=== PATIENT | male | born 1990 | race Caucasian/White ===

== ENCOUNTER 2023-04-25 20:40 | Emergency (ER) | payer BC, SELFPAY ==
--- NOTE | 2023-04-25 20:50 | ECG_ITS ---
APPROVED REPORT Exam: Resting ECG HR:75 bpm ECG Measurements Heart Rate 75 AXES AR 156 P 29 QRSd 113 QRS 13 QT 365 T 73 QTc 394 Conclusion SINUS RHYTHM WITH SINUS ARRHYTHMIA Isolated Q in III ABNORMAL ECG UNCONFIRMED REPORT Electronically signed by : Jorge Maldonado MD 04/26/2023 09:51:42
[2023-04-25 20:54] VITALS: BP 132/86; PULSE 78; RESP 18; TEMP 36.7; O2SAT 98; BMI 32.3
--- NOTE | 2023-04-25 21:00 | CT_ITS ---
PROCEDURE INFORMATION: Exam: CTA Head With Contrast, Arteriography Exam date and time: 04/25/2023 9:12 PM Age: 33 years old Clinical indication: Stroke-like symptoms; RT upper extremity and RT lower extremity weakness; Additional info: Jernigan/r weak TECHNIQUE: Imaging protocol: Computed tomographic angiography of the head with contrast. Exam focused on the arteries. 3D rendering (Not supervised by radiologist): MIP and/or 3D reconstructed images were created by the technologist. Radiation optimization: All CT scans at this facility use at least one of these dose optimization techniques: automated exposure control; mA and/or kV adjustment per patient size (includes targeted exams where dose is matched to clinical indication); or iterative reconstruction. Contrast material: ISOVUE; Contrast volume: 100 ml; Contrast route: INTRAVENOUS (IV); REPORTING DATA: Count of CT and Cardiac NM exams in prior 12 months: This patient has received 0 known CTs and 0 known cardiac nuclear medicine studies in the 12 months prior to the current study. COMPARISON: CT HEAD/BRAIN WO CON 04/25/2023 9:05 PM FINDINGS: ANTERIOR CIRCULATION: Right internal carotid artery: Intracranial segment is patent with no significant stenosis. No aneurysm. Right middle cerebral artery: No occlusion or significant stenosis. No aneurysm. Right anterior cerebral artery: No occlusion or significant stenosis. No aneurysm. Left internal carotid artery: Intracranial segment is patent with no significant stenosis. No aneurysm. Left middle cerebral artery: No occlusion or significant stenosis. No aneurysm. Left anterior cerebral artery: No occlusion or significant stenosis. No aneurysm. POSTERIOR CIRCULATION: Right vertebral artery: No occlusion or significant stenosis. No aneurysm. Left vertebral artery: No occlusion or significant stenosis. No aneurysm. Basilar artery: No occlusion or significant stenosis. No aneurysm. Right posterior cerebral artery: No occlusion or significant stenosis. No aneurysm. Left posterior cerebral artery: No occlusion or significant stenosis. No aneurysm. Brain: No definite mass, mass effect, or midline shift. Cerebral ventricles: No ventriculomegaly. Bones/joints: Unremarkable. No acute fracture. Soft tissues: Unremarkable. IMPRESSION: No large vessel stenosis or occlusion.
--- NOTE | 2023-04-25 21:00 | CT_ITS ---
PROCEDURE INFORMATION: Exam: CT Head Without Contrast Exam date and time: 04/25/2023 9:05 PM Age: 33 years old Clinical indication: Pain; Headache; Additional info: Jernigan/r weak TECHNIQUE: Imaging protocol: Computed tomography of the head without contrast. Radiation optimization: All CT scans at this facility use at least one of these dose optimization techniques: automated exposure control; mA and/or kV adjustment per patient size (includes targeted exams where dose is matched to clinical indication); or iterative reconstruction. Other technique: STROKE PROTOCOL was implemented. REPORTING DATA: Count of CT and Cardiac NM exams in prior 12 months: This patient has received 0 known CTs and 0 known cardiac nuclear medicine studies in the 12 months prior to the current study. COMPARISON: No relevant prior studies available. FINDINGS: Brain: No acute infarct. No hemorrhage. Unremarkable white matter for age. No mass effect. Cerebral ventricles: No ventriculomegaly. Paranasal sinuses: No significant inflammation. No fluid levels. Mastoid air cells: Visualized mastoid air cells are well aerated. Bones/joints: Unremarkable. No acute fracture. Soft tissues: Unremarkable. IMPRESSION: No acute intracranial abnormality. ASSESSMENT: ASPECTS ([facility] Stroke Program Early CT Score) is 10.
--- NOTE | 2023-04-25 21:00 | CT_ITS ---
PROCEDURE INFORMATION: Exam: CTA Neck With Contrast Exam date and time: 04/25/2023 9:12 PM Age: 33 years old Clinical indication: Stroke-like symptoms; RT upper extremity and RT lower extremity weakness; Additional info: Jernigan/r weak TECHNIQUE: Imaging protocol: Computed tomographic angiography of the neck with contrast. 3D rendering (Not supervised by radiologist): MIP and/or 3D reconstructed images were created by the technologist. Radiation optimization: All CT scans at this facility use at least one of these dose optimization techniques: automated exposure control; mA and/or kV adjustment per patient size (includes targeted exams where dose is matched to clinical indication); or iterative reconstruction. Contrast material: ISOVUE; Contrast volume: 100 ml; Contrast route: INTRAVENOUS (IV); REPORTING DATA: Count of CT and Cardiac NM exams in prior 12 months: This patient has received 0 known CTs and 0 known cardiac nuclear medicine studies in the 12 months prior to the current study. COMPARISON: CT HEAD/BRAIN WO CON 04/25/2023 9:05 PM FINDINGS: Right common carotid artery: No stenosis. No dissection or occlusion. Right internal carotid artery: No stenosis of the extracranial segment. No dissection or occlusion. Right external carotid artery: No occlusion or stenosis of the origin. Left common carotid artery: No stenosis. No dissection or occlusion. Left internal carotid artery: No stenosis of the extracranial segment. No dissection or occlusion. Left external carotid artery: No occlusion or stenosis of the origin. Right vertebral artery: No stenosis. No dissection or occlusion. Left vertebral artery: No stenosis. No dissection or occlusion. Soft tissues: Normal. No significant soft tissue swelling. Bones/joints: No acute fracture. IMPRESSION: No stenosis or occlusion. REFERENCES: NASCET CRITERIA. The degree of stenosis in the cervical segment of the internal carotid artery is based on NASCET criteria. Normal is no stenosis. Mild is less than 50% stenosis. Moderate is 50-69% stenosis. Severe is 70% to 99% stenosis. Total occlusion is no detectable patent lumen.
--- NOTE | 2023-04-25 21:01 | XR_ITS ---
PROCEDURE INFORMATION: Exam: XR Chest Exam date and time: 04/25/2023 9:31 PM Age: 33 years old Clinical indication: Sternal or substernal pain; Additional info: Cp TECHNIQUE: Imaging protocol: Radiologic exam of the chest. Views: 1 view. COMPARISON: CT ANGIO NECK 04/25/2023 9:12 PM FINDINGS: Lungs: Unremarkable. No consolidation. Pleural spaces: Unremarkable. No pleural effusion. No pneumothorax. Heart/Mediastinum: Unremarkable. No cardiomegaly. Bones/joints: Unremarkable. IMPRESSION: No acute findings.
--- NOTE | 2023-04-25 21:02 | HMH.EDGENADL ---
Discharge Plan Disposition Patient Disposition: Xfer Short-Term Hosp Prescriptions Prescriptions: No Action rosuvastatin [Crestor] 5 mg tablet 5 mg PO DAILY Qty: 30 2RF Referrals Follow up/Referrals: Provider,Referral, [Primary Care Provider] - See instructions Clinical Impressions Clinical Impression: Acute CVA (cerebrovascular accident) Discharge ED Provider: Aguilar Maldonado General Adult HPI General Chief complaint: Dizziness Stated complaint: blurry vision, headache Time Seen by Provider: 04/25/23 20:45 History of Present Illness HPI narrative: Patient is a 33-year-old male with no significant past medical history presents emergency department for evaluation of headache and right upper extremity weakness. Last known normal 5:15 PM patient developed severe maximum onset headache, bilateral blurry vision, right-sided weakness. Due to persistent symptoms he presents here for continued evaluation. Patient does not take blood thinners. Related Data Previous Rx's Medication Instructions Recorded rosuvastatin 5 mg tablet (Crestor) 5 mg PO DAILY #30 tabs 05/07/22 Allergies Allergy/AdvReac Type Severity Reaction Status Date / Time No Known Allergies Allergy Verified 04/23/22 11:32 [facility] Disclaimer: The information contained in this section may have been updated after the patient was seen, as this information can be updated by other users. Medical History (Updated 04/25/23 @ 21:54 by Aguilar Maldonado MD) Family history of ischemic heart disease Shoulder pain Family History Grandfather Cancer Diabetes Brother Diabetes Mother Hypertension Social History (Updated 04/23/22 @ 11:31 by Kareen Elizabeth) Smoking Status: Never smoker alcohol intake: never substance use type: denies use current occupational status: employed Travel in the last 8 weeks: Inside the [place] ROS Obtained: Yes Systems reviewed as appropriate & no additional complaints except as documented Physical Exam General General appearance: alert and in no apparent distress Head Head exam: atraumatic and normocephalic Eye Eye exam: Present PERRL and EOMI ENT ENT exam: Present mucous membranes moist Neck Neck exam: Present normal inspection Chest Chest inspection: Present normal inspection and symmetric chest wall rise Respiratory Respiratory exam: Present normal lung sounds bilaterally; Absent respiratory distress Cardiovascular Cardiovascular exam: Present regular rate and normal rhythm Abdominal Exam Abdominal exam: Present soft; Absent tenderness Extremities Exam Extremities exam: Present normal inspection Neurological Exam Neurological exam: Present alert, oriented X3 and motor sensory deficit (Right upper extremity drift to bed, right lower extremity drift to bed. Decreased sensation right arm and right leg.); Absent CN II-XII intact (Bilateral visual blurriness, able to see in all visual mcclellan.) Psychiatric Psychiatric exam: Present normal affect Skin Skin exam: Present warm and dry Medical Decision Making Yunier Inquiry Pt receiving controlled substance: No Vital Signs: 04/25/23 20:54 Temperature 98.0 F Temperature Source Oral Pulse Rate [Right] 78 Respiratory Rate 18 Blood Pressure [Right Arm] 132/86 Blood Pressure Mean [Right Arm] 101 Blood Pressure Source [Right Arm] Automatic Cuff Blood Pressure Position [Right Arm] Supine 02 Sat by Pulse Oximetry 98 Oxygen Delivery Method Room Air Lab Data Lab Results 04/25/23 20:53: WBC 7.3, RBC 5.45, Hgb 15.5, Hct 46.3, MCV 85.0, MCH 28.4, MCHC 33.4, RDW 13.5, Plt Count 208, MPV 10.1, Neut % (Auto) 58.3, Lymph % (Auto) 32.1, Mills % (Auto) 7.1, Eos % (Auto) 1.8, Baso % (Auto) 0.8, Neut # (Auto) 4.2, Lymph # (Auto) 2.3, Mills # (Auto) 0.5, Eos # (Auto) 0.1, Baso # (Auto) 0.1, PT 10.1, INR 0.93, APTT 25.6, Sodium 142, Potassium 3.6, Chloride 108 H, Carbon Dioxide
[2023-04-25 21:09] LABS: Hematocrit 46.3 % (42.0-52.0); Hemoglobin 15.5 g/dL (14.1-18.0); Mean Corpuscular Hemoglobin 28.4 pg (27.0-31.2); Red Blood Count 5.45 M/mm3 (4.60-6.20); White Blood Count 7.3 K/mm3 (4.8-10.8)
[2023-04-25 21:10] LABS: Basophils # 0.1 K/mm3 (0-0.2); Basophils % 0.8 % (0.1-2.0); Chloride 108 mmol/L (98-107); Eosinophils # 0.1 K/mm3 (0.0-0.4); Eosinophils % 1.8 % (0.1-12.0); Lymphocytes # 2.3 K/mm3 (0.7-4.5); Lymphocytes % 32.1 % (10-50); Mean Corpuscular HGB Conc 33.4 g/dL (31.8-35.4); Mean Platelet Volume 10.1 fl (7.4-10.4); Monocytes # 0.5 K/mm3 (0.1-1.0); Monocytes % 7.1 % (1.7-9.3); Neutrophils # 4.2 K/mm3 (1.8-7.8); Neutrophils % 58.3 % (37.0-80.0); Platelet Count 208 K/mm3 (142-424); Red Cell Distribution Width 13.5 % (11.5-17.5); Sodium 142 mmol/L (136-145)
--- NOTE | 2023-04-25 21:10 | PC.NURSE ---
PT IN CT
[2023-04-25 21:11] LABS: Potassium 3.6 mmoL/L (3.5-5.1)
[2023-04-25 21:13] LABS: Alanine Aminotransferase 43 U/L (12-78); Albumin Level 4.2 g/dl (3.5-5.0); Albumin/Globulin Ratio 1.5 (1.1-1.8); Alkaline Phosphatase 112 U/L (38-126); Anion Gap 14.6 mEq/L (5-15); Aspartate Amino Transferase 31 U/L (17-59); Bilirubin,Total 0.2 mg/dl (0.2-1.3); Blood Urea Nitrogen 18 mg/dl (9-20); Carbon Dioxide 23 mmol/L (22.0-30.0); Cholesterol 192 mg/dl (140-200); Creatinine Clearance Estimated 135 mL/min (50-200); Estimated Glomerular Filt Rate 76 ml/min (>60); GFR (African American) 92 ML/MIN (>60); Globulin 2.8 g/dL (1.3-3.2); Triglycerides 166 mg/dl (30-150); VLDL Cholesterol 33 mg/dL (0-40)
[2023-04-25 21:14] LABS: Calcium 9.2 mg/dl (8.4-10.2); Chol/HDL Ratio 6.6 (1-3.5); Glucose 136 mg/dl (74-100); HDL Cholesterol 29 mg/dl (40-60)
[2023-04-25 21:16] LABS: Activated Partial Thrombo Time 25.6 seconds (22.8-30.6); INR 0.93 (0.9-1.1); Prothrombin Time 10.1 seconds (10.1-12.5)
[2023-04-25 21:25] LABS: Direct LDL Cholesterol 116.69 mg/dL (100-129)
[2023-04-25 21:29] LABS: Troponin I < 0.01 ng/ml (0.00-0.034)
--- NOTE | 2023-04-25 21:36 | PC.NURSE ---
on the phone with [employer] [facility] [employer]
[2023-04-25 21:48] VITALS: BMI 33.2
--- NOTE | 2023-04-25 22:02 | PC.NURSE ---
Patient remains alert, oriented. VSS. RN monitoring continued.
--- NOTE | 2023-04-25 22:02 | PC.NURSE ---
consent obtained per patient and his who remains at bedside. Patient verbally states acknowledgement of risks.
--- NOTE | 2023-04-25 22:15 | PC.NURSE ---
[id number].vss. emv 15. No obvious distress observed. Denies dyspnea, angina, n/v/d, abd pain. No obv signs of bleeding. Nurse at bedside continuing to monitor.
--- NOTE | 2023-04-25 22:20 | PC.NURSE ---
Call made to [facility] for tansport to [facility]. Report called and given to JOHANNY Ruffin at [facility]. Patient will be going to 2B ICU bed 223.
[2023-04-25 22:25] VITALS: BP 129/84; PULSE 74; RESP 15; TEMP 36.5; O2SAT 95
--- NOTE | 2023-04-25 22:30 | PC.NURSE ---
RN monitoring continues at bedside. No new symptoms noted. VSS. emv 15. nih 6.
[2023-04-25 22:57] VITALS: BP 141/86; PULSE 67; RESP 22; TEMP 36.5; O2SAT 96
== END 2023-04-25 23:06 | disposition short-term general hospital (02) ==
PROVIDERS: Emergency Provider Emergency Medicine; PCP Family Medicine
DX: I63.9 Cerebral infarction, unspecified (principal)
CPT/HCPCS: 70450; 70496; 70498; 71045; 80053; 80061; 84484; 85025; 85610; 85730; 93005; 96374; 96375; 99291; J0131; J2997; Q9967

== ENCOUNTER 2024-07-27 07:27 | Day surgery (SDC) | payer OTHER, SELFPAY ==
--- NOTE | 2024-07-27 07:39 | P.HP_ITS ---
History of Present Illness *Admission Date: 07/27/24 *Reason for visit:: Intractable GERD/throat clearing *History of present illness: Mr. Zamudio is a 34-year-old gentleman who is here for diagnostic upper endoscopy secondary to worsening heartburn and reflux despite using famotidine twice daily and omeprazole. The examination is deemed medically necessary for EGD. The patient has been seen, interviewed and examined prior to the procedure by both myself and the anesthesia provider. [facility] Disclaimer: The information contained in this section may have been updated after the domenic ent was seen, as this information can be updated by other users. Medical History (Updated 07/27/24 @ 07:40 by Lex Stone II, MD) Acid reflux Shoulder pain Family history of ischemic heart disease Surgical History (Updated 07/24/24 @ 14:46 by Dinora Maria RN) No significant past surgical history Family History Grandfather Cancer Diabetes Brother Diabetes Mother Hypertension Social History Smoking Status: Never smoker alcohol intake: never substance use type: denies use current occupational status: employed Travel in the last 8 weeks: Inside the [place] Have you lived/traveled outside US in past 30 days?: No Contact w/someone who lives/traveled outside US past 30 days?: No Exposure to someone with infectious disease in past 14 days?: No Do you have a fever (greater than 100.4 F or 38 C)?: No Have you tested positive for COVID-19: No Exposed to someone with COVID-19 in past 14 days?: No Do you have a sore throat?: No Do you have a cough?: No Do you have any weakness?: No Do you have any diarrhea?: No Are you experiencing any unusual bleeding?: No Do you have any muscle aches/pain?: No Do you have any abdominal pain?: No Are you experiencing loss of taste or smell?: No Review of Systems Review of Systems Review of systems (narrative): Negative *Cardiovascular Comments: Negative *Gastrointestinal Comments: Negative *Genitourinary Comments: Negative *Musculoskeletal Comments: Negative *Neurologic Comments: Negative Meds Home Medications and Allergies Home Medications ?Medication ?Instructions ?Recorded ?Confirmed ?Type famotidine 20 mg tablet 20 mg PO BID GERD 90 days #180 tabs 02/24/24 07/24/24 Rx omeprazole 40 mg capsule,delayed 40 mg PO DAILY gerd #90 caps 03/12/24 07/24/24 Rx release apixaban 5 mg tablet (Eliquis) 5 mg PO BID 07/01/24 07/24/24 History atorvastatin 40 mg tablet 40 mg PO DAILY 07/01/24 07/24/24 History colestipol 1 gram tablet 1 g PO BID #60 tabs 07/01/24 07/24/24 Rx magnesium hydroxide 400 mg (170 mg 400 mg PO DAILY 07/01/24 07/24/24 History magnesium) chewable tablet New Prescriptions to Start Prescriptions: Allergies Allergy/AdvReac Type Severity Reaction Status Date / Time No Known Allergies Allergy Verified 07/24/24 14:46 Exam *Routine HEENT Exam Head: Present normocephalic Eye: Present EOMI and PERRL ENT: Present mucous membranes moist *Routine Neck Exam Neck: Present supple *Routine Respiratory Exam Respiratory: Present CTA bilaterally *Routine Cardiovascular Exam Cardiovascular: Present RRR *Routine Abdominal Exam Abdominal: Present soft and normoactive bowel sounds; Absent tenderness *Routine Rectal Exam Rectal:: deferred *Routine Genitalia Exam Genitalia:: deferred *Routine Extremities Exam Extremities: Absent cyanosis, clubbing or edema *Routine Skin Exam Skin: Present warm; Absent rash *Routine Neurological Exam Neurological: Present alert and oriented X3 Assessment and Plan *Assessment and plan (1) GERD (gastroesophageal reflux disease): Status: Acute Category: Medical Code(s): K21.9 - Gastro-esophageal reflux disease without esophagitis (2) Heartburn: Status: Acute Category: Medical Code(s): R12 - Heartburn (3) Throat clearing: Status: Acute Category: Medical Code(s): R09.89 - Other specified symptoms and signs involving the circulatory and respiratory systems Plan A/P: 1. Worsening GERD/heartburn with throat clearing is the preprocedural diagnosis. The patient will be anesthetized/sedated using MAC sedation. The patient has been seen and examined. Cardiac and lung assessment prior to the examination is stable. Proceed with planned diagnostic EGD
--- NOTE | 2024-07-27 07:40 | P.PCN_ITS ---
[facility] Procedure Note Date: 07/27/24 Time: 08:10 Procedure Note:: Upper Endoscopy Procedure Report: Esophagogastroduodenoscopy with cold biopsies Endoscopost: Lex Stone II, MD Referring Physician: Nestor Linda MD Date of Procedure: July 27, 2024 Equipment: Olympus GIF 190 standard upper endoscope Sedation: MAC sedation Indications: Mr. Zamudio is a 34-year-old gentleman who is here for diagnostic evaluation of his persistent heartburn, reflux and dyspepsia. He does report some severe heartburn with chest pain. He has this despite taking omeprazole daily and famotidine twice daily. He has moderate belching and some bloating. He does report some early satiety and occasional nausea. The patient reports no dysphagia but does have occasional globus sensation. The patient also has chronic diarrhea and probable IBS?D. He has had cholecystectomy 6 or 7 years ago and presumptive bile acid diarrhea. The patient does report some urgency. He had a DIANE but has not had prior upper endoscopy. Procedure: Prior to the procedure, a history and physical exam was performed, and patient's medications and allergies were reviewed. The risks, benefits and alternatives of the sedation and procedure were discussed with the patient. All questions were answered and informed consent was obtained. The patient was brought to the procedure room. Patient identification and proposed procedure were verified by the physician and the nurse. The patient was placed in a left lateral decubitus position and the scope was passed under direct vision. Throughout the procedure, the patient's blood pressure, pulse, and oxygen saturations were monitored continuously. The upper GI endoscopy was accomplished without difficulty. The patient tolerated the procedure well. Findings: The scope was passed directly into the upper esophagus and advanced to the third portion of the duodenum. The post bulbar duodenum and duodenal bulb were normal with normal mucosa and conniventes. There was no scalloping of the conniventes. The ampulla was normal in appearance. The scope was withdrawn through a normal duodenal bulb and pylorus into the stomach. The pylorus was patulous. There was some linear reactive chemical gastropathy of the antrum (bile reflux). The body and fundus of the stomach were normal. Upon retroflexion there was a small 1 to 2 cm hiatal hernia. There was some bile and retained liquid food in the stomach. Biopsies were taken from the antrum. The scope was then withdrawn into the esophagus. There was a serrated Z-line with 1 tongue of salmon-colored mucosa that was biopsied to rule out short segment Cunningham's esophagus. There was no evidence of reflux esophagitis. There were tertiary contractions and evidence of moderate esophageal dysmotility. There was a small proximal esophageal inlet patch. The remainder of the esophageal mucosa was normal. Impression: 1. Nonerosive GERD with moderate esophageal dysmotility, small 1 to 2 cm hiatal hernia and single tongue of salmon-colored mucosa (biopsied to rule out short segment Cunningham's) 2. Linear reactive gastropathy with bile reflux and mild gastric dysmotility Plan: I will follow-up the biopsies. I would consider adding tricyclic or his intermittent esophageal spasm and IBS diarrhea. I would also continue colestipol. He may benefit from low-dose promotility agent for his ongoing functional GERD. Additionally, I would recommend dietary measures and testing of enzymes.
[2024-07-27 07:52] VITALS: BP 135/81; PULSE 98; RESP 16; TEMP 36.2; O2SAT 99; BMI 33.7
[2024-07-27] MEDS: LACTATED RINGERS 1000ML 1,000 ML 25 ML IV (07:58)
[2024-07-27 08:05] VITALS: O2SAT 99
[2024-07-27 08:20] VITALS: BP 120/77; PULSE 75; RESP 17; TEMP 36.3; O2SAT 93
[2024-07-27 08:30] VITALS: BP 122/77; PULSE 71; RESP 17; O2SAT 96
[2024-07-27 08:40] VITALS: BP 122/75; PULSE 73; RESP 17; O2SAT 95
[2024-07-27 08:50] VITALS: BP 139/80; PULSE 71; RESP 18; O2SAT 98
--- NOTE | 2024-07-27 08:56 | EXP.ANES.CKL ---
[facility] Disclaimer: The information contained in this section may have been updated after the patient was seen, as this information can be updated by other users. Medical History History of transesophageal echocardiography (DIANE) Hx of arterial ischemic stroke Acid reflux Shoulder pain Family history of ischemic heart disease Surgical History Hx of cholecystectomy Family History Grandfather Cancer Diabetes Brother Diabetes Mother Hypertension Social History Smoking Status: Never smoker alcohol intake: never substance use type: denies use current occupational status: employed Travel in the last 8 weeks: Inside the [place] caffeine: No Have you lived/traveled outside US in past 30 days?: No Contact w/someone who lives/traveled outside [place] past 30 days?: No Exposure to someone with infectious disease in past 14 days?: No Do you have a fever (greater than 100.4 F or 38 C)?: No Have you tested positive for COVID-19: No Exposed to someone with COVID-19 in past 14 days?: No Do you have a sore throat?: No Do you have a cough?: No Do you have any weakness?: No Do you have any diarrhea?: No Are you experiencing any unusual bleeding?: No Do you have any muscle aches/pain?: No Do you have any abdominal pain?: No Are you experiencing loss of taste or smell?: No [facility] Anesthesia Checklist Patient Identification Patient Identification: Arm Band Structural Data Admitted From: Home Planned Operative Procedure/s: EGD Consent for Planned Operative Procedure(s) Verified: Yes Verified Documents: Surgical Consent, History and Physical and Cardiac Clearance NPO Status Verified Time NPO: 00:00 Additional verifications Anesthesia Reactions: No Airway Assessment Mallampati Score:: Class II C-Spine Mobility Assessed: Yes TMJ Mobility Assessed: Yes Dentition: Good Dentition Neurological Assessment Level of Consciousness: Awake, Alert and Appropriate Anesthesia Plan Anesthesia Risk discussed: Yes Anesthesia Plan: Verified ASA Class: III Anesthesia Type: MAC
== END 2024-07-27 08:50 | disposition home or self-care (01) ==
PROVIDERS: PCP Internal Medicine; Visit Provider Internal Medicine Gastroenterology
PROC: 0DJ08ZZ Inspection of Upper Intestinal Tract, Via Natural or Artificial Opening Endoscopic (ICD-10-PCS; CPT 43239; principal; 2024-07-27 08:30)
DX: K21.9 Gastro-esophageal reflux disease without esophagitis (principal); R09.89 Other specified symptoms and signs involving the circulatory and respiratory systems; K58.0 Irritable bowel syndrome with diarrhea; K22.4 Dyskinesia of esophagus; K30 Functional dyspepsia; R68.81 Early satiety; K44.9 Diaphragmatic hernia without obstruction or gangrene; K31.9 Disease of stomach and duodenum, unspecified; K31.84 Gastroparesis
CPT/HCPCS: 43239; J7120

== ENCOUNTER 2025-06-02 07:55 | Day surgery (SDC) | payer OTHER, SELFPAY ==
--- NOTE | 2025-05-27 16:10 | EXP.HP ---
History of Present Illness *Admission Date: 06/02/25 *History of present illness: Mr. Zamudio is a 35-year-old gentleman who is here for diagnostic colonoscopy. The patient has had postprandial bowel urgency and diarrhea and had cholecystectomy 6 to 7 years ago. He does have urgent bowel movements 3-7 times daily. He has never had a colonoscopy. The examination is deemed medically necessary for diagnostic colonoscopy. The patient has been seen, interviewed and examined prior to the procedure by both myself and the anesthesia provider. [facility] Disclaimer: The information contained in this section may have been updated after the patient was seen, as this information can be updated by other users. Medical History HLD (hyperlipidemia) Abnormal electrocardiogram [ECG] [EKG] History of transesophageal echocardiography (DIANE) Hx of arterial ischemic stroke Acid reflux Shoulder pain Family history of ischemic heart disease Surgical History Hx of cholecystectomy Family History Grandfather Cancer Diabetes Brother Diabetes Mother Hypertension Social History Smoking Status: Never smoker alcohol intake: never substance use type: denies use current occupational status: employed Travel in the last 8 weeks?: Inside the [place] caffeine: No Have you lived/traveled outside US in past 30 days?: No Contact w/someone who lives/traveled outside US past 30 days?: No Exposure to someone with infectious disease in past 14 days?: No Do you have a fever (greater than 100.4 F or 38 C)?: No Have you tested positive for COVID-19?: No Exposed to someone with COVID-19 in past 14 days?: No Do you have a sore throat?: No Do you have a cough?: No Do you have any weakness?: No Do you have any diarrhea?: No Are you experiencing any unusual bleeding?: No Do you have any muscle aches/pain?: No Do you have any abdominal pain?: No Are you experiencing loss of taste or smell?: No Review of Systems Review of Systems Review of systems (narrative): Negative *Cardiovascular Comments: Negative *Gastrointestinal Comments: Negative *Genitourinary Comments: Negative *Musculoskeletal Comments: Negative *Neurologic Comments: Negative Meds Home Medications and Allergies Home Medications ?Medication ?Instructions ?Recorded ?Confirmed ?Type apixaban 5 mg tablet (Eliquis) 5 mg PO BID 07/01/24 06/02/25 History magnesium hydroxide 400 mg (170 mg 400 mg PO DAILY 07/01/24 06/02/25 History magnesium) chewable tablet amitriptyline 10 mg tablet 10 mg PO BID #60 tabs 07/27/24 06/02/25 Rx metoclopramide HCl 5 mg tablet 5 mg PO ACHS #120 tabs 07/27/24 06/02/25 Rx atorvastatin 40 mg tablet 40 mg PO QHS 09/28/24 06/02/25 History colestipol 1 gram tablet 2 g (2 x 1 gram) PO BID #120 tabs 09/28/24 06/02/25 Rx omeprazole 40 mg capsule,delayed 40 mg PO DAILY gerd #90 caps 09/28/24 06/02/25 Rx release sodium,potassium,mag sulfates 17.5 See Rx Instructions PO .COMPLEX 05/20/25 06/02/25 Rx gram-3.13 gram-1.6 gram oral soln #354 mL (Suprep Bowel Prep Kit) famotidine 20 mg tablet 40 mg PO DAILY 05/31/25 06/02/25 History lisinopril 5 mg tablet 2.5 mg PO DAILY 05/31/25 06/02/25 History topiramate 25 mg tablet 50 mg PO DAILY 05/31/25 06/02/25 History topiramate 50 mg tablet 50 mg PO HS 05/31/25 06/02/25 History ubrogepant 100 mg tablet (Ubrelvy) 100 mg PO NEEDED PRN headaches 05/31/25 06/02/25 History New Prescriptions to Start Prescriptions: Allergies Allergy/AdvReac Type Severity Reaction Status Date / Time No Known Allergies Allergy Verified 05/31/25 10:59 Exam *Routine HEENT Exam Head: Present normocephalic Eye: Present EOMI and PERRL ENT: Present mucous membranes moist *Routine Neck Exam Neck: Present supple *Routine Respiratory Exam Respiratory: Present CTA bilaterally *Routine Cardiovascular Exam Cardiovascular: Present RRR *Routine Abdominal Exam Abdominal: Present soft and normoactive bowel sounds; Absent tenderness *Routine Rectal Exam Rectal:: deferred *Routine Genitalia Exam Genitalia:: deferred *Routine Extremities Exam Extremities: Absent cyanosis, clubbing or edema *Routine Skin Exam Skin: Present warm; Absent rash *Routine Neurological Exam Neurological: Present alert and oriented X3 Assessment and Plan *Assessment and plan (1) Chronic diarrhea: Status: Acute Category: Medical Code(s): K52.9 - Noninfective gastroenteritis and colitis, unspecified (2) Fecal urgency: Status: Acute Category: Medical Code(s): R15.2 - Fecal urgency (3) Bile salt-induced diarrhea: Status: Acute Category: Medical Code(s): K90.89 - Other intestinal malabsorption Plan A/P: 1. Chronic diarrhea with urgency is the preprocedural diagnosis. The patient will be anesthetized/sedated using MAC sedation. The patient has been seen and examined. Cardiac and lung assessment prior to the examination is stable. Proceed with planned diagnostic colonoscopy.
[2025-06-02] VITALS (7 sets, daily range): BP systolic 121–149; BP diastolic 54–93; PULSE 77–95; RESP 16–18; TEMP 36.1–36.4; O2SAT 95–100; BMI 33.0
--- NOTE | 2025-06-02 06:29 | P.PCN_ITS ---
[facility] Procedure Note Date: 06/02/25 Time: 10: Procedure Note:: Colonoscopy Procedure Report: Colonoscopy with cold biopsies Endoscopist: Lex Stone II, MD Referring physician: Nestor Linda MD Date of Procedure: June 02, 2025 Equipment: Olympus [id number] adult colonoscope Sedation: MAC sedation Indication: Mr. Zamudio is a 35-year-old gentleman who is here for diagnostic colonoscopy. The patient has had postprandial bowel urgency and diarrhea and had cholecystectomy 6 to 7 years ago. He does have urgent bowel movements 3-7 times daily. The patient does state that this is watery and unformed bowel movements. He does have a lot of gassiness and some bloating. He also gets some generalized abdominal discomfort. He reports no rectal bleeding, mucus with his stools or weight loss. He reports no family history of colitis, Crohn's disease or colon cancer. He has never had a colonoscopy. The examination is deemed medically necessary for diagnostic colonoscopy. Procedure: Prior to the procedure, a history and physical exam was performed, and patient's medications and allergies were reviewed. The risks, benefits and alternatives of the sedation and procedure were discussed with the patient. All questions were answered and informed consent was obtained. The patient was brought to the procedure room. Patient identification and proposed procedure were verified by the physician and the nurse. The patient was placed in a left lateral decubitus position and the scope was passed under direct vision. Throughout the procedure, the patient's blood pressure, pulse, and oxygen saturations were monitored continuously. The colonoscopy was accomplished without difficulty. The patient tolerated the procedure well. Findings: On digital rectal examination there was normal rectal tone. There were no external hemorrhoids. The colonoscope was introduced through the anal canal to the rectum and advanced to the cecum. The ileocecal valve and appendiceal orifice were identified. The scope was advanced a short distance into the ileum which appeared grossly normal. The scope was then withdrawn into the colon. The cecum, ascending, transverse, descending, sigmoid and rectum were grossly normal. There was normal vascular pattern throughout and there were no mucosal abnormalities identified. Random cold biopsies were taken from both the right and the left colon to rule out microscopic colitis. Upon retroflexion within the rectum there were grade 1-2 internal hemorrhoids. The preparation was excellent throughout with Stamping Ground Preparation Score of 9. The cecal time was 12 minutes. Impression: 1. Normal colonoscopy with intubation of the terminal ileum 2. Grade 1-2 internal hemorrhoids Plan: I will follow-up the biopsies to rule out microscopic colitis. 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 Because of his prior cholecystectomy, I would recommend alosetron and may still consider Viberzi. I will await biopsies before deciding upon best treatment option.
[2025-06-02] MEDS: LACTATED RINGERS 1000ML 1,000 ML 50 ML IV (09:17)
--- NOTE | 2025-06-02 09:55 | EXP.ANES.CKL ---
[facility] Disclaimer: The information contained in this section may have been updated after the patient was seen, as this information can be updated by other users. Medical History HLD (hyperlipidemia) Abnormal electrocardiogram [ECG] [EKG] History of transesophageal echocardiography (DIANE) Hx of arterial ischemic stroke Acid reflux Shoulder pain Family history of ischemic heart disease Surgical History Hx of cholecystectomy Family History Grandfather Cancer Diabetes Brother Diabetes Mother Hypertension Social History Smoking Status: Never smoker alcohol intake: never substance use type: denies use current occupational status: employed Travel in the last 8 weeks?: Inside the [place] caffeine: No Have you lived/traveled outside US in past 30 days?: No Contact w/someone who lives/traveled outside US past 30 days?: No Exposure to someone with infectious disease in past 14 days?: No Do you have a fever (greater than 100.4 F or 38 C)?: No Have you tested positive for COVID-19?: No Exposed to someone with COVID-19 in past 14 days?: No Do you have a sore throat?: No Do you have a cough?: No Do you have any weakness?: No Do you have any diarrhea?: No Are you experiencing any unusual bleeding?: No Do you have any muscle aches/pain?: No Do you have any abdominal pain?: No Are you experiencing loss of taste or smell?: No [facility] Anesthesia Checklist Patient Identification Patient Identification: Arm Band Structural Data Admitted From: Home Planned Operative Procedure/s: Colonoscopy Consent for Planned Operative Procedure(s) Verified: Yes Verified Documents: Surgical Consent and History and Physical NPO Status Verified Time NPO: 06:00 (finished prep) Additional verifications Anesthesia Reactions: No Airway Assessment Mallampati Score:: Class II C-Spine Mobility Assessed: Yes TMJ Mobility Assessed: Yes Dentition: Good Dentition Neurological Assessment Level of Consciousness: Awake, Alert and Appropriate Anesthesia Plan Anesthesia Risk discussed: Yes Anesthesia Plan: Verified ASA Class: II Anesthesia Type: MAC
== END 2025-06-02 11:50 | disposition home or self-care (01) ==
PROVIDERS: PCP Internal Medicine; Visit Provider Internal Medicine Gastroenterology
PROC: 0DJD8ZZ Inspection of Lower Intestinal Tract, Via Natural or Artificial Opening Endoscopic (ICD-10-PCS; CPT 45378; principal; 2025-06-02 10:00)
DX: K64.0 First degree hemorrhoids (principal); K64.1 Second degree hemorrhoids; K52.9 Noninfective gastroenteritis and colitis, unspecified; K90.89 Other intestinal malabsorption; E78.5 Hyperlipidemia, unspecified; Z90.49 Acquired absence of other specified parts of digestive tract; Z79.01 Long term (current) use of anticoagulants
CPT/HCPCS: 45380; J2003; J2704; J7120

== ENCOUNTER 2025-06-16 07:47 | Outpatient (CLI) | payer OTHER, SELFPAY ==
--- OUTSIDE RECORDS SUMMARY | 2002-09-01 | XMS_ITS | Encounter Summary ---
Author Organization [facility] Address [address] [place] [id number] Care Team Providers Care Store Lead Name Role Phone Unavailable Primary Care Provider Unavailabl e Encounter Details Date Type Department Care Team (Late st Contact Info) Description 09/01/2002 Hospital Encounter [facility] Division of Cardiology [address] [place] [id number] Social History Tobacco Use Types Packs/Day Years Used Date Smoking Tobacco: Never Assessed Sex and Gender Information Value Date Recorded Sex Assigned at Not on file Legal Sex Male 5:14 AM EST Gender Identity Not on file Sexual Orientation Not on file documented as of this encounter Plan of Treatment Not on file documented as of this encounter Visit Diagnoses Not on filedocumented in this encounter
--- OUTSIDE RECORDS SUMMARY | 2025-05-03 12:30 | XMS_ITS | Encounter Summary ---
Author Organization [facility] Address [address] [place] [address] Care Team Providers Care Chemistry Laboratory Technician Name Role Phone Nestor Linda MD Primary Care Provider Reason for Visit * Reason Comments Follow-up Encounter Details Date Type Department Care Team (Late st Contact Info) Description 05/03/2025 1:30 PM EDT Office Visit [facility] [address] [place] [address] Jillian Fam APRN [address] [place], [place] [address] [place] [address] History of stroke (Primary Dx); Hyperlipidemia, unspecified hyperlipidemia type; Chronic migraine with aura without status migrainosus, not intractable Social History Tobacco Use Types Packs/Day Years Used Date Smoking Tobacco: Never Passive Smoke Exposure: Never Smokeless Tobacco: Never Tobacco Cessation:Counseling Given: No Alcohol Use Standard Drinks/Week Comments Not Currently 1 (1 standard drink = 0.6 oz pur e alcohol) AUDIT-C Answer Date Recorded Q1: How often do you have a drink containing alc ohol? 2-4 times a month 04/26/2023 Q2: How many drinks containi ng alcohol do you have on a typical day when you are drinking? 3 or 4 04/26/2023 Q3: How often do you have si x or more drinks on one occasion? Never 04/26/2023 PHQ-2 Answer Date Recorded Retired PHQ-9: Brief Depression Severity Measure Score 0 07/18/2023 Abuse Screen Answer Date Recorded Feels Unsafe at Home or Work/School no 10/20/2024 Feels Threatened by Someone no 10/03 Does Anyone Try to Keep You From Having Contact with Others or Doing Things Outside Your Home? no 10/20/2024 Physical Signs of Abuse Present no 10/20/2024 Housing Stability Answer Date Recorded Current Living Arrangements home 04/06 Potentially Unsafe Housing Conditions unable to assess 04/26/2023 Disabilities Answer Date Recorded Difficulty Concentrating, Remembering or Making Decisions no 04/26/2023 Difficulty Managing Errands Independently no 04/26/2023 Education Answer Date Recorded Help with school or training? Not on file Preferred Language Finnish 04/26/2023 PHQ-2 Answer Date Recorded Patient Health Questionnaire-2 Score 0 05/03/2025 Sex and Gender Information Value Date Recorded Sex Assigned at Male 10/30/2024 8:52 AM EDT Legal Sex Male 9:57 PM EDT Gender Identity Not on file Sexual Orientation Straight 10/30/2024 8: 52 AM EDT documented as of this encounter Last Filed Vital Signs Vital Sign Reading Time Taken Comments Blood Pressure 118/76 05/03/2025 1:16 PM EDT Pulse 89 05/03/2025 1:16 PM EDT Temperature 36.8 C (98.2 F) 05/03/2025 1:16 PM EDT Respiratory Rate - - Oxygen Saturation 98% 05/03/2025 1:16 PM EDT Inhaled Oxygen Concentration - - Weight 103 kg (226 lb 9.6 oz) 05/03/2025 1:16 PM EDT Height 177.8 cm (5' 10 ) 05/03/2025 1:16 PM EDT Body Mass Index 32.51 05/03/2025 1:16 PM EDT documented in this encounter Functional Status documented as of this encounter Progress Notes * Jillian Fam APRN - 05/03/2025 1:30 PM EDT Follow Up Office Visit Encounter Date: 05/03/2025 Patient Name: Gordon Zamudio : 1990 PCP: Nestor Linda MD Chief Complaint: History of stroke aborted by TNK. Chronic migraine. History of Present Illness: Gordon Zamudio is a 35 y.o. male who is here today to establish care. Patient has known medical history of hypertension and hyperlipidemia. [facility] with headache, bilateral eye blurred vision/squiggly lines, right-sided weakness and paresthesias. Outside hospital ER physician reported CT head and CTA were negative. Initial NIH 11. Patient was deemed a candidate for IV thrombolytic therapy and agreed to receive IV tPA. Patient self-reported he had had atrial fibrillation on his Apple Watch. On his presentation tot ED he was noted to be in sinus rhythm on EKG. MRI of the brain did not show any evidence of acute ischemic infarct. Per record review Dr. Haywood favored an ocular migraine over a vascular event. He was initially discharged on ASA 81 mg and Lipitor 80 mg. His hypercoagulable panel was negative. Patient's symptoms completely resolved. This event was likely an ocular migraine rather than a vascular event. Due to patient having a mildly positive saline test during his TTE and having multipleheads in right and left MCA territories on his TCD patient was referred to cardiology. He was recommended to continue taking mag oxide 400 mg nightly for headache prevention. Since his discharge from the hospital patient has been seen by cardiology. Patient completed a DIANE which showed a normal ejection fraction and saline test results were negative. He initially wore a Holter monitor which was negative. He will pursue a loop recorder. Per patient cardiology started patient on Eliquis 5 mg twice daily and DC'd ASA 81 mg. I am in agreement with this plan. Patient has not had any issues or concerns since his discharge from the hospital. No new or worsening neurologic symptoms. I do feel that loop recorder placement would be in the patient's best interest. Clinic visit 10/31/2023: Patient presents today accompanied by his and his friend. He denies any new or worsening strokelike symptoms. He has had no new episodes. He has been taking his Eliquis 5mg twice daily along with his cholesterol medication with no issues or side effects. He followed upwith cardiology today and they report they have no further concerns and feel he needs no further workup. They will see him back in a year and we will plan to do the same. Clinic visit 11/05/2024: Since her last visit patient has returned to the ER on 10/20/2024 for dizziness with worsening right sided weakness and numbness. He continues to take Eliquis for presumed atrial fibrillation. This is never been confirmed formally but was identified on his Apple Watch. He is faithful with his medications per his report. Although he was seen in April 2023 for possible stroke and received TNK it was speculated at that time that the patient was experiencing an ocular migraine. During his most recent reoccurrence in October 2024 patient was experiencing a 6/10 right frontal headache. After receiving a migraine cocktail again his symptoms resolved. The patient was evaluated by the inpatient stroke team CT of the head was stable with no evidence of hemorrhage or obvious stroke. CTA of the head and neck was negative for flow-limiting stenosis or large vessel occlusion..Ultimately an MRI of the brain without contrast was negative for any acute stroke but however did show multiple white matter changes present on FLAIR which could be related to demyelinating disease versus chronic white matter disease. A repeat MRI with contrast was recommended but the patient was unable to lay still to accomplish this on an inpatient basis. Plans were made for the patient to get this done on an outpatient basis. Based on the results of this MRI I decision would be made on whether to send the patient for a lumbar puncture and workup with Dr. Diehl for possible demyelinating disease versus a referral to Dr. Lugo for ocular/atypical migraine management. On my review of hisoutpatient MRI with and without contrast it seems that the presentation is not as usual for multiple sclerosis or demyelination. There was no abnormal enhancement noted. Dr. Farhan Ratliff again reported nonspecific white matter changes without evidence of abnormal enhancement. It is in my opinion that the patient should be sent to Dr. Rose for his specialty treatment and recommendations of migraine syndrome. I would also like to get his opinion from a general neurology standpoint what these white matter changes represent. Ultimately we can always send the patient for formal demyelinating disease workup if he feels this is necessary. In the interim while the patient is waiting for an appointment in the general neurology clinic I will initiate Topamax 25 mg at nighttime to help prevent future migraine headaches. The patient will call our office and give us feedback if this is not helpful or causes him to have any side effects. Clinic visit 05/03/2025: Patient is seen in clinic today for routine follow-up accompanied by his . He has been following our clinic for several years. He has not had any new stroke events since 2022. Patient has been referred to the general neurology clinic for Dr. Rose to manage his ongoing migraines. He has been maintained on Eliquis 5 mg twice daily as during his stroke event was noted to be in A-fib on a home monitor. Cardiology initiated this medication and we will continue as such fornow. Dr. Rose has recommended that we follow through with a loop recorder implantation which has been discussed multiple times in the past. I am in agreement with this plan if the patient goes a recommended amount of time by cardiology with no evidence of A-fib it is reasonable to consider transitioning him to aspirin monotherapy. Subjective I have reviewed and the following portions of the patient's history were updated as appropriate: past family history, past medical history, past social history, past surgical history and problem list. Medications: Current Outpatient Medications: amitriptyline (ELAVIL) 10 MG tablet, Take 1 tablet by mouth Every 12 (Twelve) Hours., Disp: , Rfl: apixaban (Eliquis) 5 MG tablet tablet, Take 1 tablet by mouth 2 (Two) Times a Day., Disp: 180 tablet, Rfl: 3 atorvastatin (LIPITOR) 40 MG tablet, Take 1 tablet by mouth Every Night., Disp: 90 tablet, Rfl: 3 colestipol (COLESTID) 1 g tablet, Take 1 tablet by mouth Every 12 (Twelve) Hours., Disp: , Rfl: famotidine (PEPCID) 20 MG tablet, Take 1 tablet by mouth At Night As Needed for Indigestion or Heartburn. (Patient taking differently: Take 1 tablet by mouth 2 (Two) Times a Day.), Disp: , Rfl: lisinopril (PRINIVIL,ZESTRIL) 5 MG tablet, Take 0.5 tablets by mouth Daily., Disp: 45 tablet, Rfl: 3 magnesium oxide (MAG-OX) 400 tablet tablet, Take 1 tablet by mouth Daily., Disp: 60 tablet, Rfl: 2 metoclopramide (REGLAN) 5 MG tablet, Take 1 tablet by mouth 4 (Four) Times a Day., Disp: , Rfl: omeprazole (priLOSEC) 40 MG capsule, Take 1 capsule by mouth Daily., Disp: , Rfl: rimegepant sulfate ODT (Nurtec) 75 MG disintegrating tablet, Place 1 tablet under the tongue Daily As Needed (For migraine. Max 75 mg per 24 hours.)., Disp: 8 tablet, Rfl: 11 topiramate (Topamax) 50 MG tablet, Take 1 tablet by mouth Every Night for 90 days., Disp: 90 tablet, Rfl: 1 Allergies: No Known Allergies Objective Physical Exam: Vital Signs: Vitals: 05/03/25 1316 BP: 118/76 Pulse: 89 Temp: 98.2 ??F (36.8 ??C) SpO2: 98% Weight: 103 kg (226 lb 9.6 oz) Height: 177.8 cm (70 ) Body mass index is 32.51 kg/m??. Physical Exam Vitals and nursing note reviewed. Constitutional: General: He is not in acute distress. Appearance: Normal appearance. He is obese. He is not ill-appearing. Comments: 35-year-old male HENT: Head: Normocephalic and atraumatic. Nose: Nose normal. Mouth/Throat: Mouth: Mucous membranes are moist. Eyes: Extraocular Movements: Extraocular movements intact. Pupils: Pupils are equal, round, and reactive to light. Cardiovascular: Rate and Rhythm: Normal rate and regular rhythm. Pulses: Normal pulses. Pulmonary: Effort: Pulmonary effort is normal. No respiratory distress. Skin: General: Skin is warm and dry. Neurological: General: No focal deficit present. Mental Status: He is alert and oriented to person, place, and time. Mental status is at baseline. Cranial Nerves: No cranial nerve deficit. Sensory: No sensory deficit. Motor: No weakness. Coordination: Coordination normal. Gait: Gait normal. Psychiatric: Mood and Affect: Mood normal. Behavior: Behavior normal. Modified Tryon Score: 0 0 No Symptoms 1 No significant disability. Able to carry out all usual activities, despite some symptoms. 2 Slight disability. Able to look after own affairs without assistance, but unable to carry out allprevious activities. 3 Moderate disability. Requires some help, but able to walk unassisted. 4 Moderately severe disability. Unable to attend to own bodily needs without assistance, and unableto walk unassisted. 5 Severe disability. Requires constant nursing care and attention, bedridden, incontinent. 6 PHQ-9 Depression Screening Little interest or pleasure in doing things? Not at all Feeling down, depressed, or hopeless? Not at all PHQ-2 Total Score 0 Trouble falling or staying asleep, or sleeping too much? Feeling tired or having little energy? Poor appetite or overeating? Feeling bad about yourself - or that you are a failure or have let yourself or your family down? Trouble concentrating on things, such as reading the newspaper or watching television? Moving or speaking so slowly that other people could have noticed? Or the opposite - being so fidgety or restless that you have been moving around a lot more than usual? Thoughts that you would be better off , or of hurting yourself in some way? PHQ-9 Total Score If you checked off any problems, how difficult have these problems made it for you to do your work,take care of things at home, or get along with other people? Hemoglobin Date Value Ref Range Status 10/20/2024 14.3 13.0 - 17.7 g/dL Final Hematocrit Date Value Ref Range Status 10/20/2024 40.8 37.5 - 51.0 % Final Platelets Date Value Ref Range Status 10/20/2024 209 140 - 450 10*3/mm3 Final Hemoglobin A1C Date Value Ref Range Status 04/26/2023 5.40 4.80 - 5.60 % Final LDL Cholesterol Date Value Ref Range Status 07/18/2023 64 0 - 100 mg/dL Final AST (SGOT) Date Value Ref Range Status 10/20/2024 19 1 - 40 U/L Final ALT (SGPT) Date Value Ref Range Status 10/20/2024 26 1 - 41 U/L Final Assessment / Plan Assessment/Plan: # Transient neurologic episode. Resolved right sided weakness with vision changes. Initially favored to be Ocular Migraine over vascular event per Dr. Haywood, however, cannot exclude TIA or strokeaborted by TNK. Of note patient had a reported episode of A-fib during this time noted on home monitor. -Continue Eliquis 5 mg BID for presumed Afib for now. Continue to follow up with Dr. Moody with cardiology. I have discussed a loop recorder device with the patient on multiple occasions in the past.Dr. Rose has now also recommended this. Patient is going to follow-up with cardiology for loop recorder placement. After period of time we can consider if discontinuing anticoagulation is appropriate. If we do this I would recommend lifelong aspirin for secondary stroke prevention. -Continue to focus on vascular risk factor management. - Heart healthy diet and increased activity. - Continue follow-up with Dr. Rose in the migraine clinic. - Reviewed signs and symptoms of stroke and when to call 911 or present to the ED. - Patient would like to follow-up in our clinic in approximately 6 months on the same day he is scheduled to see cardiology. Discussed the importance of medication compliance and lifestyle modifications (adequate blood pressure control, adequate control of hyperlipidemia, adequate glycemic control, increase physical activity, and healthy diet) to help reduce the risk of future cerebrovascular events. Also discussed the signs symptoms that would warrant the patient return back to the emergency department including unilateral weakness, unilateral numbness, visual disturbances, loss of balance, speech difficulties, and/or a sudden severe headache. Follow Up: Return in about 7 months (around 11/18/2025). Patient or patient safety representative verbalized consent for the use of Ambient Listening during the visit with Jillian Fam APRN for chart documentation. 05/04/2025 07:06 EDT [address] [facility] Neuro Stroke documented in this encounter Plan of Treatment Upcoming Encounters Date Type Department Care Team (Late st Contact Info) Description 11/18/2025 10:15 AM EDT Office Visit [facility] [address] [facility] [address] [place] [id number] Gena Moody MD [address] [facility] [address] [place] [address] 11/18/2025 11:30 AM EDT Office Visit [facility] [address] [facility] [address] [place] [address] Kervin Rose MD [address] [facility] [address] [place] [phone] 11/18/2025 1:00 PM EDT Office Visit [facility] [address] [facility] [address] [place] [id number] Jillian Fam APRN [address] [facility] [address] [address] documented as of this encounter Visit Diagnoses Diagnosis History of stroke- Primary Transient ischemic attack (TIA), and cerebral infarction without residual deficits Hyperlipidemia, unspecified hyperlipidemia type Chronic migraine with aura without status migrainosus, not intractable documented in this encounter Care Teams Chemistry Laboratory Technician Relationship Specialty Start Date End Date Nestor Linda MD [address] [place] [address] PCP - General Internal Medicine 10/20/24 documented as of this encounter
--- OUTSIDE RECORDS SUMMARY | 2025-06-16 07:49 | XMS_ITS | Clinical Summary ---
Author Organization [facility] Address [address] [place] [id number] Care Team Providers Care Home Assessment Nurse Name Role Phone Nestor Linda MD Primary Care Provider Allergies No known active allergies Medications amitriptyline (ELAVIL) 10 MG tablet Take 1 tablet by mouth Every 12 (Twelve) Hours. 09/28/19 25 Active colestipol (COLESTID) 1 g tablet Take 1 tablet by mouth Every 12 (Twelve) Hours. 09/28/19 25 Active famotidine (PEPCID) 20 MG tablet Take 1 tablet by mouth At Night As Needed for Indigestion or Heartburn. 09/28/19 25 Active metoclopramide (REGLAN) 5 MG tablet Take 1 tablet by mouth 4 (Four) Times a Day. 08/24/19 25 Active omeprazole (priLOSEC) 40 MG capsule Take 1 capsule by mouth Daily. 09/28/19 25 Active lisinopril (PRINIVIL,ZESTRIL) 5 MG tablet Take 0.5 tablets by mouth Daily. 45 tablet 3 11/06/19 25 Active atorvastatin (LIPITOR) 40 MG tablet Take 1 tablet by mouth Every Night. 90 tablet 3 11/06/19 25 Active magnesium oxide (MAG-OX) 400 tablet tablet Take 1 tablet by mouth Daily. 60 tablet 2 11/06/19 25 Active topiramate (Topamax) 50 MG tabletIndications: Chronic migraine with aura without status migrainosus, not intractable Take 1 tablet by mouth Every Night for 90 days. 90 tablet 1 04/07/20 25 025 Active apixaban (Eliquis) 5 MG tablet tablet Take 1 tablet by mouth 2 (Two) Times a Day. 180 tablet 3 04/28/20 25 Active ubrogepant (Ubrelvy) 100 MG tablet Take 1 tablet by mouth As Needed (For migraine. May repeat after 2 hours if needed. Max 200 mg per 24 hours.). 10 tablet 11 5 10:15 AM EDT 05/21/20 25 Active enoxaparin sodium (LOVENOX) 100 MG/ML solution prefilled syringe syringe Inject 1 mL under the skin into the appropriate area as directed Every 12 (Twelve) Hours. As directed. 3 mL 05/31/20 25 Active rimegepant sulfate ODT (Nurtec) [address] 1 tablet under the tongue Daily As Needed (For migraine. Max 75 mg per 24 hours.). 8 tablet 11 04/21/20 25 025 Discontin ued(Side effects) Active Problems Problem Noted Date Diagnosed Date Chronic migraine with aura 05/21/2025 PFO (patent foramen ovale) 04/27/2023 Suspected ischemic cerebrova scular accident (CVA). Likely embolic 04/26/2023 Paroxysmal atrial fibrillation. Based upon Apple Watch 04/26/2023 Hyperlipidemia. Was given Cr estor because of family history but elevated levels never documented per 04/26/2023 CVA (cerebral vascular accident) 04/26/2023 Encounters Date Type Department Care Team Description 05/26/2025 Telephone [facility] [address] [facility] [address] [place] [address] Gena Moody MD 05/03/2025 1:30 PM EDT Office Visit [facility] [address] [facility] [address] [place] [address] Jillian Fam APRN History of stroke (Primary Dx); Hyperlipidemia, unspecified hyperlipidemia type; Chronic migraine with aura without status migrainosus, not intractable 05/03/2025 Travel 04/27/2025 Refill [facility] [address] [facility] [address] [place] [address] Gena Moody MD Med Refill 04/07/2025 9:30 AM EDT Office Visit [facility] [address] [facility] [address] [place] [phone] Kervin Rose MD Complicated migraine (Primary Dx); Chronic migraine with aura without status migrainosus, not intractable 04/07/2025 Travel from Last 3 Months Family History Medical History Relation Name Comments Heart attack Father Gordon Hypertension Mother Beena Migraines Paternal Aunt Relation Name Status Comments Father Gordon Mother Beena Alive Paternal Aunt Social History Tobacco Use Types Packs/Day Years [...] or training? Not on file Preferred Language Niuean 04/26/2023 PHQ-2 Answer Date Recorded Patient Health Questionnaire-2 Score 0 05/03/2025 Sex and Gender Information Value Date Recorded Sex Assigned at Male 10/30/2024 8:52 AM EDT Legal Sex Male 9:57 PM EDT Gender Identity Not on file Sexual Orientation Straight 10/30/2024 8: 52 AM EDT Last Filed Vital Signs Vital Sign Reading Time Taken Comments Blood Pressure 118/76 05/03/2025 1:16 PM EDT Pulse 89 05/03/2025 1:16 PM EDT Temperature 36.8 C (98.2 F) 05/03/2025 1:16 PM EDT Respiratory Rate 12 10/20/2024 12:30 PM EDT Oxygen Saturation 98% 05/03/2025 1:16 PM EDT Inhaled Oxygen Concentration - - Weight 103 kg (226 lb 9.6 oz) 05/03/2025 1:16 PM EDT Height 177.8 cm (5' 10 ) 05/03/2025 1:16 PM EDT Body Mass Index 32.51 05/03/2025 1:16 PM EDT Plan of Treatment Upcoming Encounters Date Type Department Care Team (Late st Contact Info) Description 11/18/2025 10:15 AM EDT Office Visit [facility] [address] [facility] [address] [place] [address] Gena Moody MD [address] [facility] [address] [place] [id number] 11/18/2025 11:30 AM EDT Office Visit [facility] [address] [facility] [address] [place] [phone] Kervin Rose MD [address] [facility] [address] [place] [phone] 11/18/2025 1:00 PM EDT Office Visit [facility] [address] [facility] [address] [place] [address] Jillian Fam APRN [address] [facility] [address] [address] Health Maintenance Due Date Last Done Comments TDAP/TD VACCINES (2 - Tdap) 03/17/2012 03/17/2002 ANNUAL PHYSICAL 04/29/2023 HEPATITIS C SCREENING 04/29/2023 LIPID PANEL 07/18/2024 07/18/2023, 04/26/2023 INFLUENZA VACCINE 03/05/2025 06/15/2024, 05/24/2014 Pneumococcal Vaccine 0-49 Aged Out No longer eligible based on patient's age to complete this topic Goals Goal Patient Goal Type Associated Problems Recent Progress Patient-Stated? Author Specialty Pharmacy General Goal General On track( 025 1:23 PM EDT) No Kayleigh Hernandez, PharmD Note: On Average, Reduce: Symptom severity by 50% within 1 hour of taking acute therapy. Duration of migraines to 2 hours. Baseline Values/Notes on Enrollment Frequency: 5 MMD Symptom Severity: 8 out of 10 Duration: 4 hours or more Date of Reassessment Notes on Progress Toward Above Goals 05/21/25 Initiate Ubrelvy. Discontinue Nurtec PRN. Procedures Procedure Name Priority Date/Time Associated Diagnosis Comments LIPID PANEL Routine 07/18/2023 9:37 AM EST History of stroke from Last 3 Months or Most Recently Relevant to Health Maintenance Results * (ABNORMAL) Lipid Panel (07/18/2023 9:37 AM EST) Total Cholesterol 106 0 - 200 mg/dL 07/18/2023 2:45 PM EST [facility] Triglycerides 82 0 - 150 mg/dL 07/18/2023 2:45 PM EST [facility] HDL Cholesterol 25(L) 40 - 60 mg/dL 07/18/2023 2:45 PM EST [facility] LDL Cholesterol 64 0 - 100 mg/dL 07/18/2023 2:45 PM EST [facility] VLDL Cholesterol 17 5 - 40 mg/dL 07/18/2023 2:45 PM EST [facility] LDL/HDL Ratio 2.58 07/18/2023 2:45 PM EST [facility] Blood Venipuncture / Unknown 07/18/2023 9:37 AM EST 07/18/2023 9:37 AM EST Narrative [facility] - 07/18/2023 2:45 PM EST Cholesterol Reference Ranges (U.S. Department of Health and Human Services ATP III Classifications) Desirable <200 mg/dL Borderline High 200-239 mg/dL High Risk >240 mg/dL Triglyceride Reference Ranges (U.S. Department of Health and Human Services ATP III Classifications) Normal <150 mg/dL Borderline High 150-199 mg/dL High 200-499 mg/dL Very High >500 mg/dL HDL Reference Ranges (U.S. Department of Health and Human Services ATP III Classifications) Low <40 mg/dl (major risk factor for CHD) High >60 mg/dl ('negative' risk factor for CHD) LDL Reference Ranges (U.S. Department of Health and Human Services ATP III Classifications) Optimal <100 mg/dL Near Optimal 100-129 mg/dL Borderline High 130-159 mg/dL High 160-189 mg/dL Very High >189 mg/dL Jillian Fam [employer] [facility] BLOOD ORDERABLES Final Result [facility]
[address] [place] [id number], from Last 3 Months or Most Recently Relevant to Health Maintenance Insurance [employer] [facility] [employer] Advance Directives * CPR (Attempt to Resuscitate) (Latest Code Status on File) Date Activated Date Inactivated Comments 04/26/2023 11:44 AM 04/27/2023 2:37 PM Question Answer Comments Code Status (Patient has no pulse and is not breathing): CPR (Attempt to Resuscitate) Medical Interventions (Patie nt has pulse or is breathing): Full Support Care Teams Home Assessment Nurse Relationship Specialty Start Date End Date Nestor Linda MD [address] [place] [address] PCP - General Internal Medicine 10/20/24
--- OUTSIDE RECORDS SUMMARY | 2025-06-16 07:49 | XMS_ITS | Encounter Summary ---
Author Organization [facility] Address [address] [place] [address] Care Team Providers Care Counterperson Name Role Phone Nestor Linda MD Primary Care Provider Encounter Details Date Type Department Care Team (Latest Contact Info) Description 05/03/2025 Travel Social History Tobacco Use Types Packs/Day Years Used Date Smoking Tobacco: Never Passive Smoke Exposure: Never Smokeless Tobacco: Never Alcohol Use Standard Drinks/Week Comments Not Currently [...] or training? Not on file Preferred Language [place] Citizen 04/26/2023 PHQ-2 Answer Date Recorded Patient Health Questionnaire-2 Score 0 05/03/2025 Sex and Gender Information Value Date Recorded Sex Assigned at Male 10/30/2024 8:52 AM EDT Legal Sex Male 9:57 PM EDT Gender Identity Not on file Sexual Orientation Straight 10/30/2024 8: 52 AM EDT documented as of this encounter Functional Status documented as of this encounter Plan of Treatment Upcoming Encounters Date Type Department Care Team (Late st Contact Info) Description 11/18/2025 10:15 AM EDT Office Visit [facility] [address] [facility] [address] [place] [phone] Gena Moody MD [address] [facility] [address] [place] [address] 11/18/2025 11:30 AM EDT Office Visit [facility] [address] [facility] [address] [place] [phone] Kervin Rose MD [address] [facility] [address] [place] [phone] 11/18/2025 1:00 PM EDT Office Visit [facility] [address] [facility] [address] [place] [address] Jillian Fam APRN [address] [facility] [address] [place] [address] documented as of this encounter Visit Diagnoses Not on filedocumented in this encounter Care Teams Counterperson Relationship Specialty Start Date End Date Nestor Linda MD [address] [place] [address] PCP - General Internal Medicine 10/20/24 documented as of this encounter
--- OUTSIDE RECORDS SUMMARY | 2025-06-16 07:49 | XMS_ITS | Clinical Summary ---
Author Organization [facility] Address [address] [place] [address] Care Team Providers Care Benefit Director Name Role Phone Unavailable Primary Care Provider Unavailabl e Source Comments [facility] is fully rolled out with thefollowing exceptions:General Clinical Research [facility] Social History Tobacco Use Types Packs/Day Years Used Date Smoking Tobacco: Never Assessed Sex and Gender Information Value Date Recorded Sex Assigned at Not on file Legal Sex Male 5:14 AM EST Gender Identity Not on file Sexual Orientation Not on file Plan of Treatment Health Maintenance Due Date Last Done Comments MMR IMMUNIZATION (1 of 1 - S tandard series) 02/12/1989 DTAP/Tdap/Td IMMUNIZATION (1 - Tdap) 02/12/1995 VARICELLA IMMUNIZATION (1 of 2 - 13+ 2-dose series) 02/12/2001 HEPATITIS B IMMUNIZATION (1 of 3 - 19+ 3-dose series) 02/12/2007 HPV IMMUNIZATION (1 - 3-dose SCDM series) 02/12/2015 AMB SEASONAL FLU VACCINE (#1) 04/05/2025 COVID-19 Vaccine (2023-2 5 season) 2025 HIB IMMUNIZATION Aged Out No longer e ligible based on patient's age to complete this topic IPV IMMUNIZATION Aged Out No longer e ligible based on patient's age to complete this topic MCV4 IMMUNIZATION Aged Out No longer eligible based on patient's age to complete this topic MENINGOCOCCAL B VACCINE Aged Out No l onger eligible based on patient's age to complete this topic PNEUMOCOCCAL IMMUNIZATION Aged Out No longer eligible based on patient's age to complete this topic Respiratory Syncytial Virus (RSV) <20mo Aged Out No longer eligible b ased on patient's age to complete this topic
--- OUTSIDE RECORDS SUMMARY | 2025-06-16 07:49 | XMS_ITS ---
Author Organization [facility] Address [address] [place] [phone] Care Team Providers Care Veterinarian Laboratory Animal Care Name Role Phone Nestor Linda MD Primary Care Provider Chronic Migraine Status:Enrolled (Active) Start date:05/14/2025 Enrollment date:05/21/2025 Enrollment reason:Converted fill to Current support & services provided:Clinical Assessment, Refill Coordination , Benefits Investigation, [facility] Dispensing Linked medications:Ubrogepant (Active) Linked problems:Chronic migraine with aura (Active) Case Team Name Relationship Phone Kervin Rose MD Consulting Physician Continued Care and Services Coordination
--- OUTSIDE RECORDS SUMMARY | 2025-06-16 07:49 | XMS_ITS | Continuity of Care Document ---
Author Organization [place] [facility] [place] [facility] Address [address] [place] [address] Care Team Providers Care Before And After School Daycare Worker Name Role Phone JOSE CHRISTOPHER Primary Care Provider [phone] Assessment No assessment recorded. Plan of Treatment Reminders Order Date Submit Date Provider Last Modified By Organization Details Last Modified Time Details Appointments None record ed. Lab None record ed. Referral None record ed. Procedures None record ed. Surgeries None record ed. Imaging None record ed. Medication Orders None record ed. Patient TargetsNo targets recorded. Patient InstructionsNo instructions recorded. Reason for Referral None Reported. Problems Name Problem SNOMED Code Status Onset Date Resolution Date Notes Provider Name and Address Organization Details Recorded Time Sprain of right ankle [id number] Active 2022 Alfred Oglesby MD [address] [place] [address],[address], [place], [address], [facility] 3 15:28:48 Complex regional pain syndrome type I 109763806 Active 2022 lAfred Oglesby MD [address] [place] [address],[address], [place], [address], [facility] [place] 3 15:29:05 Neuropathic pain 587445872 Active 2022 Alfred Oglesby MD [address] [place] [address],[address], [place], [address], [facility] [place] 3 07:50:06 History of cerebrovasc ular accident 789601108 Active 2024 Sandhya glasgow, [place] - [facility] [place] 5 11:24:54 Mixed hyperlipide clair 893808450 Active 2024 Sandhya Perez null, [place] [facility] [place] [facility] 5 11:25:11 Irritable bowel syndrome with diarrhea 667637070 Active 2024 Sandhya Perez null, [place] [facility] [place] [facility] [place] 5 11:25:24 Gastroesoph ageal reflux disease without esophagitis 634773235 Active 2024 Sandhya glasgow, [place] [facility] [place] [facility] [place] 5 11:25:51 Headache disorder 636049440 Active [address], MD [address] [place] [address], [phone], [facility] & [place] 5 11:46:30 Standardize d adult depression screening tool completed [id number] 07 Active [address], MD [address] [place] [address], [phone], [facility] [place] 5 11:49:06 Patent foramen ovale 511940387 Active [address], MD [address] [place] [address], [phone], [facility] & [place] 5 11:49:08 Problem Notes None recorded. Procedures Surgical History Date Name Laterality Status Provider Name and Address Organization Details Recorded Time Cholecystectomy completed Dahiana GEORGE - [facility] [place] 11/15/2022 15:13:53 Imaging Results None recorded. Procedure Notes None recorded. Medical Equipment None Reported. Allergies No known drug allergies Medications Name Sig Start Date Stop Date Status Note LastModified by Organization Details LastModified Time atorvasta tin 40 mg tablet TAKE ONE TABLET BY MOUTH every night active Not Available Not Available No t Available hydrocodo ne 5 mg-acetam inophen 325 mg tablet TAKE 1 TABLET BY MOUTH EVERY 8 HOURS NEEDED 11/15 completed Not Available Not Available Not Available topiramat e 25 mg tablet TAKE ONE TABLET BY MOUTH EVERY NIGHT active Not Available Not Available No t Available omeprazol e 40 mg capsule,d elayed release TAKE ONE CAPSULE BY MOUTH EVERY DAY FOR GERD active Not Available Not Available No t Available famotidin e 20 mg tablet TAKE ONE TABLET BY MOUTH TWICE DAILY active Not Available Not Available No t Available metoclopr amide 5 mg tablet TAKE ONE TABLET BY MOUTH BEFORE MEALS AND AT BEDTIME active Stone Not Available Not Available No t Available amitripty line 10 mg tablet TAKE ONE TABLET BY MOUTH TWICE DAILY active Not Available Not Available No t Available esomepraz ole magnesium 40 mg capsule,d elayed release TAKE 1 CAPSULE BY MOUTH IN THE MORNING BEFORE BREAKFAS T 10/22 completed Not Available Not Available Not Available gabapenti n 300 mg capsule TAKE 1 CAPSULE BY MOUTH THREE TIMES DAILY NEEDED FOR PAIN 10/22 completed Not Available Not Available Not Available lisinopri l 5 mg tablet TAKE 1/2 TABLET BY MOUTH EVERY DAY active Not Available Not Available No t Available ibuprofen 600 mg tablet TAKE 1 TABLET BY MOUTH EVERY 6 HOURS NEEDED 10/31 completed Not Available Not Available Not Available methylpre dnisolone 4 mg tablets in a dose pack TAKE BY MOUTH DIRECTED ON INSIDE OF PACKAGE 10/22 completed Not Available Not Available Not Available colestipo l 1 gram tablet TAKE TWO TABLETS BY MOUTH TWICE DAILY active Not Available Not Available No t Available eletripta n 40 mg tablet TAKE 1 TABLET BY MOUTH ONCE DAILY DIRECTED FOR 6 DAYS active Not Available Not Available No t Available rosuvasta tin 5 mg tablet 11/12 completed Not Available Not Available Not Available Cymbalta 30 mg capsule,d elayed release Take 1 capsule every day by oral route for 30 days. 10/22 completed Not Available Not Available Not Available Eliquis 5 mg tablet TAKE ONE TABLET BY MOUTH TWICE DAILY active Not Available Not Available No t Available Vitals None Recorded Social History Question Answer Notes LastModified by Organizat ion Details LastModified Time Tobacco Smoking Status Never Smoker Dahiana Mcknight null, [place] - [facility] [place] [facility] [place] 11/15/2022 15:13:49 Do You Have An Advance Directive? No Information not available 11/15/2022 Are You Blind Or Do You Have Difficulty Seeing? No [email or web address] Information not available 11/15/2022 What Is Your Level Of Caffeine Consumption? Occasional [email or web address] Information not available 10/22/2024 What Was The Date Of Your Most Recent Tobacco Screening? 10/22/2024 Information not available 10/22/2024 Are You Passively Exposed To Smoke? No [email or web address] Information not available 11/15/2022 How Much Tobacco Do You Smoke? No [email or web address] Information not available 11/15/2022 Has Tobacco Cessation Counseling Been Provided? No [email or web address] Information not available 10/22/2024 Sex: Unknown Functional Status Question Answer Note LastModified by Organizat ion Details LastModified Time Do you use any illicit or recreational drugs? No [email or web address] Information not available 11/15/2022 Do you or have you ever used any other forms of tobacco or nicotine? No Information not available 10/22/2024 What is your level of alcohol consumption? None [email or web address] Information not available 10/22/2024 Do you or have you ever used smokeless tobacco? Never used smokeless tobacco [email or web address] Information not available 11/15/2022 What is your exercise level? Moderate [email or web address] Information not available 11/15/2022 Mental Status Question Answer Note LastModified by Organization D etails LastModified Time Do you feel stressed (tense, restless, nervous, or anxious, or unable to sleep at night)? [id number] Information not available 11/15/2022 Family History Relationship Description Onset Age of this Age Resolved Age Notes LastModified by Organization Details LastModified Time Father Myocardial infarction pt. added direct ly (10/30) [email or web address] Not available 10/30/2022 12:54:04 Maternal Grandfather Disorder of endocrine system pt. added direct ly (10/30) [email or web address] Not available 10/30/2022 12:54:22 Medical History Condition Response Coronary Artery Disease N None N Gout N Kidney Stones N Hyperthyroidism N Hypothyroidism N Depression N COPD N Anemia N Difficulty Swallowing N MRSA exposure N Anxiety Disorder N Meniere's disease N Diabetes N Obesity N Arthritis N Mental Disorder N Tuberculosis N AIDS/HIV N Congestive Heart Failure (CHF) N Cancer N Stroke Y Diverticulitis N Asthma N Reflux/GERD Y Jaundice N High Cholesterol Y Liver Disease N Heart Disease N Pulmonary Embolism N Fibromyalgia N Hypertension N Chronic Ear Infections N Osteoporosis N Kidney Disease N Immunizations Vaccine Type Date Status Note Provider Nam e and Address Organization Details Recorded Time Influenza, split virus, quadrivalent, preservative 4 completed Dahiana Mcknight null, [place] - [facility] [place] 12/03/2022 10:15:06 MMR 9 completed Dahiana Mcknight null, [place] - [facility] [place] 12/03/2022 10:15:06 COVID-19, mRNA, LNP-S, PF, 100 mcg/0.5mL dose or 50 mcg/0.25mL dose 1 completed Dahiana Mcknight null, [place] - [facility] [place] 12/03/2022 10:15:06 COVID-19, mRNA, LNP-S, PF, 100 mcg/0.5mL dose or 50 mcg/0.25mL dose 1 completed Dahiana Mcknight null, [place] - [facility] [place] 12/03/2022 10:15:06 COVID-19, mRNA, LNP-S, PF, 100 mcg/0.5mL dose or 50 mcg/0.25mL dose 1 completed Dahiana Mcknight null, [place] - [facility] [place] 12/03/2022 10:15:06 Td (adult), 2 Lf tetanus toxoid, preservative free, adsorbed 2 completed Dahiana Mcknight null, [place] - [facility] [place] 12/03/2022 10:15:06 Hep B, adolescent or pediatric 3 completed Dahiana Mcknight null, [place] - [facility] [place] 12/03/2022 10:15:06 Hep B, adolescent or pediatric 2 completed Dahiana Mcknight null, [place] - [facility] [place] 12/03/2022 10:15:06 Hep B, adolescent or pediatric 2 completed Dahiana Mcknight null, [place] - [facility] [place] [facility] [place] 12/03/2022 10:15:06 Influenza, MDCK, trivalent, PF 5 completed Sandhya Perez null, [place] - [facility] [place] [facility] [place] 06/07/2025 15:34:49 Past Encounters Encounter ID Performer Location Encounter Start Date Encounter Closed Date Diagnosis/Indication Diagnosis SNOMED-CT Code Diagnosis ICD10 Code Diagnosis IMO Codes Diagnosis Note [id number] MD [facility] [address] [place] [address] 06/07/2025 15:28:42 06/07/2025 16:09:13 Active immunization 76420004 Z23 [id number] Health Concerns Section Related Observation LastModified by Organization Detai ls LastModified Time None Recorded Concern Status LastModified by Organization Details LastModified Time None Recorded Payers Encounter Date Sequence Insurance Name Policy Number Policy Ramirez Covered Member ID Ramirez Member ID Guarantor Name 06/07/2025 1 [id number] Gordon Zamudio [id number] Gordon Zamudio 06/07/2025 2 [facility] [id number] Liliam Zamudio [id number] Gordon Zamudio
--- OUTSIDE RECORDS SUMMARY | 2025-06-16 07:49 | XMS_ITS | Encounter Summary ---
[facility] Address [address] [place] [id number] Care Team Providers Care Pipe Tester Name Role Phone Nestor Linda MD Primary Care Provider Reason for Visit * Reason Onset Date Comments Med Refill 04/27/2025 Encounter Details Date Type Department Care Team (Late st Contact Info) Description 04/27/2025 Refill [facility] [address] [place] [address] [place] [address] [place] [address] Med Refill Social History Tobacco Use Types Packs/Day Years [...] or training? Not on file Preferred Language Guinean 04/26/2023 PHQ-2 Answer Date Recorded Patient Health Questionnaire-2 Score 0 11/05/2024 Sex and Gender Information Value Date Recorded Sex Assigned at Male 10/30/2024 8:52 AM EDT Legal Sex Male 9:57 PM EDT Gender Identity Not on file Sexual Orientation Straight 10/30/2024 8: 52 AM EDT documented as of this encounter Plan of Treatment Upcoming Encounters Date Type Department Care Team (Late st Contact Info) Description 11/18/2025 10:15 AM EDT Office Visit [facility] [address] [facility] [address] [place] [id number] Gena Moody MD [address] [facility] [address] [place] [address] 11/18/2025 11:30 AM EDT Office Visit [facility] [address] [facility] [address] [place] [address] Kervin Rose MD [address] [facility] [address] [place] [address] 11/18/2025 1:00 PM EDT Office Visit [facility] [address] [facility] [address] [place] [address] Jillian Fam, LIZ [address] [facility] [address] [address] documented as of this encounter Visit Diagnoses Not on filedocumented in this encounter Care Teams Pipe Tester Relationship Specialty Start Date End Date Nestor Linda MD [address] [place] [address] PCP - General Internal Medicine 10/20/24 documented as of this encounter
--- OUTSIDE RECORDS SUMMARY | 2025-06-16 07:49 | XMS_ITS | Data Portability ---
Author Organization [facility] Address [address] [place] [address] Care Team Providers Care Wader Boot Top Assembler Name Role Phone JOSE CHRISTOPHER Primary Care Provider [phone] Assessment No assessment recorded. Plan of Treatment Reminders Order Date Submit Date Provider Last Modified By Organization Details Last Modified Time Details Appointments None recorded. Lab None recorded. Referral None recorded. Procedures None recorded. Surgeries None recorded. Imaging XR, ankle 2022 023 [facility], [address] [place] [address] , [place], [address], 3 07:45:14 Medication Orders Relpax 40 mg tablet 2024 025 [facility], [address] [place], [address], 5 11:49:19 Medrol (Kashif) 4 mg tablets in a dose pack [address] [facility] [place], [address], 5 11:23:57 Cymbalta 30 mg capsule,de layed release [address] [facility] [place], [address], 5 11:22:30 Patient TargetsNo targets recorded. Patient InstructionsNo instructions recorded. Reason for Referral None Reported. Results Created Date Observation Date Name Description Value Unit Range Abnormal Flag Note LastModifiedBy Organization Detail LastModifiedTime 01/23/20 XR, ankle No observ ation record ed. JF Menjivar [facility] [address] [place] [address] [place], [address], 01/22/2023 16:21:23 Result Notes None recorded. Problems Name Problem SNOMED Code Status Onset Date Resolution Date Notes Provider Name and Address Organization Details Recorded Time Sprain of right ankle 6214908875143 9105 Active 2022 Alfred Oglesby MD [facility] [employer] [facility],Ana Rosa te [address] [place] [address], [phone], [place] - [place] - [place] & [place] 3 15:28:48 Complex regional pain syndrome type I 863219433 Active 2022 Alfred Oglesby MD [facility] [employer] [facility],Ana Rosa te [facility], [place], [address], [place] - [facility] - [facility] & [place] 3 15:29:05 Neuropathic pain 809286112 Active 2022 Alfred Oglesby MD [facility] [employer] [facility],Ana Rosa te [address] [place] [address], [address], [place] - [place] - [place] & [place] 3 07:50:06 History of cerebrovasc ular accident 071554232 Active 2024 Sandhya Perez null, [place] - [facility] - [facility] & [place] 5 11:24:54 Mixed hyperlipide clair 555177461 Active 2024 Sandhya Perez null, [place] - [place] - [place] & [place] 5 11:25:11 Irritable bowel syndrome with diarrhea 956196625 Active 2024 Sandhya Perez null, [place] - [facility] - [facility] & [place] 5 11:25:24 Gastroesoph ageal reflux disease without esophagitis 107883857 Active 2024 Sandhya Perez null, [facility] & [place] 5 11:25:51 Headache disorder 391641072 Active [address], MD [address] [place] [address],[address], [address], [facility] & [place] 5 11:46:30 Standardize d adult depression screening tool completed 6313010617232 07 Active [address], MD [address] [place] [address],[address], [address], [facility] & [place] 5 11:49:06 Patent foramen ovale 248286844 Active [address], MD [address] [place] [address],[address], [address], [facility] & [place] 5 11:49:08 Problem Notes None recorded. Procedures Surgical History Date Name Laterality Status Provider Name and Address Organization Details Recorded Time Cholecystectomy completed Dahiana Mcknight [facility] & [place] 11/15/2022 15:13:53 Imaging Results None recorded. Procedure [...] Available Not Available No t Available Vitals Date Recorded Body height Body mass index (BMI) Body weight Body temperature Oxygen saturation Oxygen saturation in Arterial blood by Pulse oximetry Heart rate Respiratory rate Systolic And Diastolic Provider Name and Address Organization Details Last Updated DateTime 5 177.8 cm 34.6 kg/m2 626796. 76 g 98.3 [degF] 99 % 99 % 74 /min 18 /min 130/80 mm[Hg] Sandhya Perez [place] - [facility] - [place] & [place] 5 11:19:56 Date Recorded Body height Body mass index (BMI) Body weight Body temperature Oxygen saturation Oxygen saturation in Arterial blood by Pulse oximetry Heart rate Respiratory rate Systolic And Diastolic Provider Name and Address Organization Details Last Updated DateTime 5 177.8 cm 32.7 kg/m2 034554. 06 g 97.5 [degF] 98 % 98 % 108 /min 20 /min 110/78 mm[Hg] Vaishali GEORGE - LPNT [facility] & [place] 5 15:43:24 Date Recorded Body temperature Heart rate Respiratory rate Systolic And Diastolic Provider Name and Address Organization Details Last Updated DateTime 01/22/2023 98.2 [degF] 77 /min 18 /min 128/87 mm[Hg] Dahiana GEORGE - NT [facility] & [place] 3 15:52:33 Social History Question Answer Notes LastModified by Organizat ion Details LastModified Time Tobacco Smoking Status Never Smoker Dahiana Mcknight [facility], [facility] [facility] & [place] 11/15/2022 15:13:49 Do You Have An Advance Directive? No [email or web address] Information not available 11/15/2022 Are You Blind Or Do You Have Difficulty Seeing? No [email or web address] Information not available 11/15/2022 What Is Your Level Of Caffeine Consumption? Occasional [email or web address] Information not available 10/22/2024 What Was The Date Of Your Most Recent Tobacco Screening? 10/22/2024 [email or web address] Information not available 10/22/2024 Are You Passively Exposed To Smoke? No Information not available 11/15/2022 How Much Tobacco Do You Smoke? No [email or web address] Information not available 11/15/2022 Has Tobacco Cessation Counseling Been Provided? No [email or web address] Information not available 10/22/2024 Sex: Unknown Functional Status Question Answer Note LastModified by Organizat ion Details LastModified Time Do you use any illicit or recreational drugs? No [email or web address] Information not available 11/15/2022 Do you or have you ever used any other forms of tobacco or nicotine? No [email or web address] Information not available 10/22/2024 What is your level of alcohol consumption? None [email or web address] Information not available 10/22/2024 Do you or have you ever used smokeless tobacco? Never used smokeless tobacco [email or web address] Information not available 11/15/2022 What is your exercise level? Moderate [email or web address] Information not available 11/15/2022 Mental Status Question Answer Note LastModified by Organization D etails LastModified Time Do you feel stressed (tense, restless, nervous, or anxious, or unable to sleep at night)? [id number] [email or web address] Information not available 11/15/2022 Family History Relationship [...] Gout N Kidney Stones N Hyperthyroidism N Depression N COPD N Hypothyroidism N Anemia N MRSA exposure N Difficulty Swallowing N Anxiety Disorder N Meniere's disease N Diabetes N Obesity N Arthritis N Mental Disorder N Tuberculosis N AIDS/HIV N Congestive Heart Failure (CHF) N Cancer N Stroke Y Diverticulitis N Asthma N Reflux/GERD Y Jaundice N High Cholesterol Y Liver Disease N Heart Disease N Pulmonary Embolism N Fibromyalgia N Chronic Ear Infections N Hypertension N Osteoporosis N Kidney Disease N Immunizations Vaccine Type Date Status Note Provider Nam e and Address Organization Details Recorded Time Influenza, split virus, quadrivalent, preservative 4 completed Dahiana Pereiras null, [place] - [facility] & [place] 12/03/2022 10:15:06 MMR 9 completed Dahiana Mcknight null, [place] - [facility] [facility] & [place] 12/03/2022 10:15:06 COVID-19, mRNA, LNP-S, PF, 100 mcg/0.5mL dose or 50 mcg/0.25mL dose 1 completed Dahiana Mcknight null, [place] - [facility] [facility] & [place] 12/03/2022 10:15:06 COVID-19, mRNA, LNP-S, PF, 100 mcg/0.5mL dose or 50 mcg/0.25mL dose 1 completed Dahiana Mcknight null, [place] - [facility] [facility] & [place] 12/03/2022 10:15:06 COVID-19, mRNA, LNP-S, PF, 100 mcg/0.5mL dose or 50 mcg/0.25mL dose 1 completed Dahiana Mcknight null, [place] - [place] - [place] & [place] 12/03/2022 10:15:06 Td (adult), 2 Lf tetanus toxoid, preservative free, adsorbed 2 completed Dahiana Mcknight null, [place] - [facility] - [place] & [place] 12/03/2022 10:15:06 Hep B, adolescent or pediatric 3 completed Dahiana Mcknight null, [place] - [facility] - [place] & [place] 12/03/2022 10:15:06 Hep B, adolescent or pediatric 2 completed Dahiana Mcknight null, [place] - [facility] - [place] & [place] 12/03/2022 10:15:06 Hep B, adolescent or pediatric 2 completed Dahiana Mcknight null, [place] - [facility] - [place] & [place] 12/03/2022 10:15:06 Influenza, MDCK, trivalent, PF 5 completed Sandhya Perez null, [place] - [facility] & [place] 06/07/2025 15:34:49 Past Encounters Encounter ID Performer Location Encounter Start Date Encounter Closed Date Diagnosis/Indication Diagnosis SNOMED-CT Code Diagnosis ICD10 Code Diagnosis IMO Codes Diagnosis Note [id number] Alfred Oglesby MD [facility] [address] 10/31/2022 14:35:41 10/31/2022 15:38:10 Sprain of right ankle 8450811648 0327836 S93.401A Neuropathic pain 8982861 09 M79.2 Complex re gional pain syndrome type I 550487053 G90.59 [id number] MD MARLEN Hernandez [address] [address] 11/15/2022 14:58:47 11/15/2022 15:45:52 Sprain of right ankle 3207771075 1197081 S93.401A Neuropathic pain 0204660 09 M79.2 Complex re gional pain syndrome type I 240853667 G90.59 [id number] MD MARLEN Hernandezbernard [address] [place] [address] 12/06/2022 14:55:23 12/06/2022 15:56:50 Sprain of right ankle 0698141696 0531175 S93.401A [id number] Alfred Oglesby MD [facility] [address] [place] [address] 9 01/22/2023 15:42:41 01/22/2023 16:26:00 Sprain of right ankle 9740314177 5737518 S93.401A Neuropathic pain 4632306 09 M79.2 [id number] MD MARLEN Hernandez [facility] [address] [place] [address] 9 02/14/2023 15:52:56 02/14/2023 16:19:15 Pain of right ankle joint 9984801735 0745261 M25.350 [id number] MD MARLEN Campo [facility] [address] [place] [address] 10/22/2024 10:51:14 10/22/2024 11:44:38 Headache disorder 347400411 G44.009 [id number] He is new to me today with a rather complex past medical history if it is all bonafide. I am going to go on and treat this as vasomotor headaches and give him a couple of generic Relpax to see if we can break this headache he has seeing a neurologis t for further workup History of cerebrovascular accident 741694762 Z86.73 575012 This has a rather prolonged and history of which going to wait currently his neurologic workup etcetera that is going on now. He had a MRI done that was suggestive of some white matter lesions. Patent foramen ovale 204 211353 Q21.12 656296 This is a clinical suspicion diagnosis for now and is currently under workup by Cardiology and Neurology. Standard ed adult depression screening tool completed 1679225404 88048 Z13.31 85733725 Routine screening for depression is found to be negative. No interventi ons are required [id number] MD MARLEN Campo [facility] [address] [place] [address] 12/23/2024 15:29:11 12/23/2024 16:48:18 Bacterial dysentery 349440580 A04.9 78523739 Issues relative to today's discussion and diagnosis were addressed. All questions were attempted to be addressed and reconciled . Any particular necessary informatio n was dispensed History of cerebrovascular accident 386415052 Z86.73 283184 This has a rather prolonged and history of which going to wait currently his neurologic workup etcetera that is going on now. He had a MRI done that was suggestive of some white matter lesions. Gastroesop hageal reflux disease without esophagitis 952892360 K21.9 056818 [id number] MD MARLEN Campo [facility] [address] [place] [address] 06/07/2025 15:28:42 06/07/2025 16:09:13 Active immunization 07803997 Z23 87469254 Health Concerns Section Related Observation LastModified by Organization Detai ls LastModified Time None Recorded Concern Status LastModified by Organization Details LastModified Time None Recorded Advance Directives Directive N: Payers Insurance Date Sequence Insurance Name Policy Number Policy Ramirez Covered Member ID Ramirez Member ID Guarantor Name 10/29/2022 1 [place] [id number] Gordon Zamudio [id number] Gordon Zamudio 10/29/2022 [facility] Gordon Zamudio 10/22/2024 1 [id number] Gordon Zamudio [id number] Gordon Zamudio 06/07/2025 2 [facility] [id number] Liliam Zamudio [id number] Gordon Zamudio 10/29/2022 1 [facility] [id number] Gordon Zamudio [id number] Gordon Zamudio Notes Date Note Type Note Provider Name and Address Organization Details Recorded Time 01/22/2023 text/html ROS as noted in the HPI Patient is here today for ongoing right ankle pain. States pain with some numbness radiates up the tib/fib. This has been ongoing for about a month. He is 3 months post injury E2 jS Alfred Oglesby MD [address] [place] [address],[address], [place], [address], [facility] & [place] 01/23/2023 07:50:13 02/14/2023 text/html ROS as noted in the HPI 33 y/o male here today for recheck right ankle. Pt states the medrol dosepak and neurontin are helping about 25-50% with pain depending on activity. Pain gets better with rest. BERNARD Oglesby MD [address] [place] [address],[address], [place], [address], [facility] & [place] 02/15/2023 06:17:42 10/22/2024 text/html Today's visit is to establish as a new patient. Historically I actually took care of this young man when he was a child. He has recently had some issues going on that have been evaluated between Cardiology and Neurology for what sounds like presyncopal episodes. It is of note he has got a family history of a father that in his mid 20s of sudden and at that time he had a muscular band crossing the LAD that was thought to cause him to have acute coronary syndrome Jose Christopher MD [address] [place] [address],[address], [place], [address], [facility] & [place] 10/22/2024 11:50:41 12/23/2024 text/html ROS as noted in the HPI Gordon comes in today for follow-up after a pretty aggressive gastroenteritis/co litis picture that has been going on now for about 8 days he is decreased from about 15 times a day and down to 3 or 4. It is of note he was in the emergency room they did a CT scan there really was no stool specimen etcetera done. Jose Christopher MD [address] [place] [address],[address], [place], [address], [facility] & [place] 12/23/2024 16:33:15
--- OUTSIDE RECORDS SUMMARY | 2025-06-16 07:49 | XMS_ITS | Encounter Summary ---
[facility] Address [address] [place] [address] Care Team Providers Care Crane Oiler Name Role Phone Nestor Linda MD Primary Care Provider Encounter Details Date Type Department Care Team (Late st Contact Info) Description 05/26/2025 Telephone [facility] [address] [place], [place] [phone] Gena Moody MD [address] [place] [address] Social History Tobacco Use Types Packs/Day Years [...] or training? Not on file Preferred Language [place] 04/26/2023 PHQ-2 Answer Date Recorded Patient Health Questionnaire-2 Score 0 05/03/2025 Sex and Gender Information Value Date Recorded Sex Assigned at Male 10/30/2024 8:52 AM EDT Legal Sex Male 9:57 PM EDT Gender Identity Not on file Sexual Orientation Straight 10/30/2024 8: 52 AM EDT documented as of this encounter Progress Notes * Tequila Bolivar RN - 05/31/2025 4:03 PM EDTAddended by: TEQUILA BOLIVAR on: 05/31/2025 04:03 PM Modules accepted: Orders documented in this encounter Miscellaneous Notes * Telephone Encounter - Tequila Bolivar RN - 05/31/2025 4:[address] Moody would like to proceed with lovenox bridging due to previous stroke history. Lovenox script sent to pharmacy. Clearance letter sent to Dr. Stone. Pt's notified and verbalized understanding. * Telephone Encounter - Tequila Bolivar RN - 05/31/2025 1:21 PM EDT Received vm from [facility] with [facility] requesting update on CC for upcoming colonoscopy scheduled 06/02. * Telephone Encounter - Soraya Ruiz PA-C - 05/28/2025 3:50 PM EDT This was the recommendation of Dr. Moody that he sent to Trish yesterday. You will have to ask him onMonday why that is. * Telephone Encounter - Tequila Bolivar RN - 05/28/2025 3:30 PM EDT Spoke with pt's regarding anticoagulation plan. They prefer to hold eliquis without lovenox bridging, like how his EGD was managed in Jul 2024. She reports no changes in pt's condition since that time, and pt has not previously required bridging. Please advise. * Telephone Encounter - Soraya Ruiz PA-C - 05/28/2025 2:[address] Moody stated above he needs to be bridged with Lovenox. That means that he will stop the Eliquis and be on Lovenox prior to his colonoscopy. His last dose of Eliquis will be 05/30 and then youwill need to call in Lovenox 1 mg/kg dosing every 12 hours for 05/31-. Based on his weight it will be 100 mg of Lovenox. He will not take any anticoagulation the day of the procedure but will need to reinitiate Eliquis the day after his procedure. * Telephone Encounter - Gena Moody MD - 05/27/2025 1:21 PM EDT Patient will need bridging with Lovenox for the procedure * Telephone Encounter - Jessy Oglesby RN - 05/26/2025 3:15 PM EDT Patient is needing CC for colonoscopy with . He is on elqiuis. documented in this encounter Plan of Treatment Upcoming Encounters Date Type Department Care Team (Late st Contact Info) Description 11/18/2025 10:15 AM EDT Office Visit [facility] [address] [facility] [address] [place] [phone] Gena Moody MD [address] [facility] [address] [place], [place] [id number] 11/18/2025 11:30 AM EDT Office Visit [facility] [address] [facility] [address] [place] [phone] Kervin Rose MD [address] [facility] [address] [place] [address] 11/18/2025 1:00 PM EDT Office Visit [facility] [address] [facility] [address] [place], [place] [phone] Jillian Fam APRN [address] [facility] [address] [address] documented as of this encounter Goals Goal Patient Goal Type Associated Problems [...] Goals 05/21/25 Initiate Ubrelvy. Discontinue Nurtec PRN. documented as of this encounter Visit Diagnoses Not on filedocumented in this encounter Care Teams Crane Oiler Relationship Specialty Start Date End Date Nestor Linda MD [address] [place] [address] PCP - General Internal Medicine 10/20/24 documented as of this encounter
--- NOTE | 2025-06-16 08:00 | CA_ITS ---
APPROVED REPORT EXAM: Comprehensive 2D, Doppler, and color-flow Echocardiogram Manager Clinic: Jillian Monge, RCS, RVS Ht: 5 ft 10 in Wt: 235lbs BSA: 2.24 BP: 122/83 mmHg Indications: CP, Hx-CVA, Afib, SOB, HLD, Strong family hx-early cardiac 2D Dimensions Left Atrium 3.58 cm M: 3.0 - 4.0 LA Volume 86.90 mL LA Volume Index 38.745661 mL/m2 (M/F) 16-34 M-Mode Dimensions RVDd 3.20 cm (0.9-2.6) LA Diam 3.80 cm (1.9-4.0) LVDd 5.03 cm (3.5-5.7) LVDs 3.51 cm (3.5-5.7) IVSd 1.07 cm (0.6-1.1) PWd 1.03 cm (0.6-1.1) EF (Teich) 57.30% EPSs 1.03 cm FS 30.20% EDV (Teich) 119.90 mL TAPSE 2.11 (<1.7) ESV (Teich) 51.20 mL LV Diastology E Decel Time 250 (160-240 msec) E/A Ratio 1.04 MED A' 7.40 cm/s LAT A' 8.90 cm/s Aortic Valve LUIS Index 1.02 cm2/m2 AoV Peak Vikash. 118.0 (50-130 cm/s) AO Peak GR. 5.60 mmHg AO Mean GR. 2.80 (<5 mmHg) AO VTI 22.9 (18-25 cm) LUIS (VTI) 2.34 (2.5-4.5 cm2) Mitral Valve MV A Velocity 66.0 (40-130 cm/s) E/A Ratio 1.04 Pulmonary Valve PV Peak Velocity 81.0 (50-150 cm/s) Tricuspid Valve TR P. Velocity 184.00 cm/s RAP Estimate 10.00 mmHg RVSP 23.60 mmHg Left Ventricle The left ventricle is normal size. Left ventricular systolic function is normal. The left ventricular ejection fraction is within the normal range. There is normal left ventricular wall thickness. The apical LV wall is mildly hypokinetic. The left ventricular diastolic function is normal. LVEF is 50-55% Right Ventricle The right ventricle is mildly dilated. The right ventricular systolic function is normal. Atria The left atrium is mildly dilated. The right atrium is mildly dilated. There is no color Doppler evidence of interatrial shunt. Aortic Valve The aortic valve opens well. There is no hemodynamically significant aortic valvular stenosis. Mild aortic regurgitation is present. Mitral Valve The mitral valve is normal in structure. No evidence of mitral valve stenosis. Mild mitral regurgitation is present. Tricuspid Valve The tricuspid valve leaflets are thin and pliable. Trace tricuspid regurgitation. There is insufficient TR jet to estimate RVSP. Pulmonic Valve The pulmonary valve is grossly normal in structure. Trace pulmonic valve regurgitation is present. Great Vessels The aortic root is normal in size. IVC is normal in size and collapses >50% with inspiration. Pericardium There is no pericardial effusion. Other Information Study Quality: Fair Conclusion Normal biventricular systolic function (LVEF 50-55%). The apical LV wall is mildly hypokinetic. Mild RV dilation. Mild biatrial dilation. Mild MR, mild AI. No significant valvular stenosis or regurgitation. Electronically signed by : Fatou Diaz MD 06/21/2025 13:13:09
[2025-06-16 08:27] VITALS: BMI 33.0
[2025-06-16 08:31] LABS: Hematocrit 42.6 % (42.0-52.0); Hemoglobin 14.2 g/dL (14.1-18.0); Immature Granulocytes % 0.2 %; Mean Corpuscular HGB Conc 33.3 g/dL (31.8-35.4); Mean Corpuscular Hemoglobin 28.3 pg (27.0-31.2); Mean Corpuscular Volume 85.0 fl (80-94); Nucleated Red Blood Cells % 0 %; Platelet Count 214 K/mm3 (142-424); Red Blood Count 5.01 M/mm3 (4.60-6.20); Red Cell Distribution Width-SD 41.4 fL; White Blood Count 6.2 K/mm3 (4.8-10.8)
[2025-06-16 08:50] VITALS: BP 123/78; PULSE 72; RESP 18; TEMP 36.1; O2SAT 100
[2025-06-16 09:01] LABS: Alanine Aminotransferase 27 U/L (12-78); Albumin Level 4.3 g/dl (3.5-5.0); Alkaline Phosphatase 121 U/L (38-126); Anion Gap 12.0 mEq/L (5-15); Aspartate Amino Transferase 21 U/L (17-59); Bilirubin,Direct 0.1 mg/dl (0.0-0.4); Bilirubin,Indirect 0.5 mg/dL (0.0-0.9); Bilirubin,Total 0.6 mg/dl (0.2-1.3); Bilirubin,Unconjugated 0.4 mg/dL (0.0-1.1); Blood Urea Nitrogen 13 mg/dl (9-20); Calcium 9.5 mg/dl (8.4-10.2); Carbon Dioxide 22 mmol/L (22.0-30.0); Chloride 109 mmol/L (98-107); Cholesterol 107 mg/dl (140-200); Creatinine Clearance Estimated 149 mL/min (50-200); Creatinine,Serum 1.00 mg/dl (0.66-1.25); Estimated Glomerular Filt Rate 84 ml/min (>60); GFR (African American) 102 ML/MIN (>60); Glucose 95 mg/dl (74-100); HDL Cholesterol 34 mg/dl (40-60); Magnesium 1.9 mg/dl (1.6-2.3); Potassium 4.0 mmoL/L (3.5-5.1); Sodium 139 mmol/L (136-145); Total Protein,Serum 6.8 g/dl (6.3-8.2); Triglycerides 92 mg/dl (30-150)
[2025-06-16 09:16] LABS: Free T4 (Free Thyroxine) 0.85 ng/dl (0.78-2.19)
[2025-06-16 09:31] LABS: Thyroid Stimulating Hormone 1.67 uIU/mL (0.465-4.68)
[2025-06-16] MEDS: METOPROLOL TARTRATE 50MG TABLET PO (09:38)
--- NOTE | 2025-06-16 10:00 | CT_ITS ---
APPROVED REPORT Occupational Medicine Physician: CLINICAL INDICATION Chest Pain TECHNIQUE Image Acquisition: A 128 slice MDCT scanner ([employer]) was used for data acquisition. A noncontrast coronary calcium scan was performed. A CT attenuation threshold of 130 Hounsfield units (HU) was used for the detection of calcium in contiguous voxels of 1 sq mm in area to be counted as individual lesions. Bolus tracking in the ascending aorta with a threshold of 180 HU was performed. Immediately afterwards, ECG synchronized cardiac CT was then performed from the cardiac base to apex using retrospective gating with ECG tube current modulation. A total of 85 mL of Isovue 370 mg/mL contrast medium was administered at 5 mL/sec followed by a saline flush using a biphasic injection protocol. A tube voltage of 120 KVp was used. The patient received the following medications prior to the cardiac CT. 50 mg of oral metoprolol 0.4 mg of sublingual nitroglycerin The average heart rate at the time of acquisition was 64 bpm and regular. Image Reconstruction Transaxial images were reconstructed at 0.67 mm slide thickness. Data was reviewed interactively on an advanced workstation capable of 2 and 3-dimensional displays in all conventional reconstruction formats, including multiplanar reformations, maximum intensity projections, curved multiplanar reformations, and volume rendered reconstructions. When applicable, selected routine images describing the relevant coronary anatomy and pathology were saved and sent to PACS. Complications None Technical Quality Overall image quality was suboptimal due to significant motion and blurring artifact. Coronary artery opacification was adequate. Total DLP (Dose-Length Product) is 2027.9 mGy-cm. The reported value represents the total of one or more individual components during the CT acquisition of this date and at this time, and as such, the same value may appear in more than one CT report depending on the interpreting/reporting physicians. COMPARISON None FINDINGS CT Coronary Calcium Scoring LMA (Left Main Artery) = 0 LAD (Left Anterior Descending) = 0 LCX (Left Coronary Circumflex) = 0 RCA (Right Coronary Artery) = 0 Total Calcium Score = 0 using the AJ-130 method. The interpretation of the calcium heart score is based on the following continuum*: 0 = no calcified plaque detected (risk of coronary artery disease is very low ??? less than 5%) 1-10 = calcium detected in extremely minimal levels (risk of coronary diseases is still low ??? less than 10%) 11-100 = mild levels of plaque detected with certainty (mild or minimal narrowing of heart arteries is likely) 101-400 = definite,at least moderate levels of plaque detected (relatively high risk of a heart attack within 3-5 years) >401-999 = extensive levels of plaque detected (high risk of heart attack, high levels of vascular disease are present, high likelihood of at least one significant coronary narrowing) *The calcium heart score quantifies the burden of coronary calcification/plaque in the coronary arteries. The calcium heart score is not able to evaluate the presence or burden of non-calcified (i.e. soft) plaque. There is no identifiable calcification in the aortic valve, mitral annulus or mitral valve, pericardium, or myocardium. Coronary CT Angiography The coronary arterial system is right dominant. Quantitative Stenosis Grading: Left Main (LM): The left main originates normally from the left sinus of Valsalva. The LM bifurcates into the left anterior descending artery and left circumflex artery. The LM is patent with no evidence of atherosclerosis. Left Anterior Descending (LAD) and Diagonal Branches: The LAD gives off 3 diagonal branch(es). The LAD and its branches are patent with no evidence of atherosclerosis. There is no evidence of LAD-myocardial bridge. Left Circumflex (LCX) and Obtuse Marginals (OM): The LCX gives off 1 Obtuse Marginal (OM) branch(es). The LCX and its branches are patent with no evidence of atherosclerosis. Right Coronary Artery (RCA): The RCA originates normally from the right sinus of Valsalva. The RCA gives off a posterior descending artery (PDA) and posterolateral (PL) branches. The RCA and its branches are patent with no evidence of atherosclerosis. Non-Coronary Cardiac Findings: Analysis of the left ventricular (LV) structure and function was performed after 3-D reconstruction of the LV from axial images, with user-corrected automatic contouring for assessment of LV volumes and user-defined reconstruction from oblique planes for measurement of 3-D cardiac structure and function. -The left ventricle systolic function is normal. -There is no left atrial appendage filling defect. Two right pulmonary veins and two left pulmonary veins drain normally into the left atrium. -No pericardial thickening or calcification. -Central and branch pulmonary arteries in the [id number] are unremarkable. -Thoracic aorta within the visualized thoracic aortic-branches in the [id number] is unremarkable. Extracardiac Structures No significant extra-cardiac findings. Note, however, that this study is focused on the cardiac findings. IMPRESSION -Technically difficult study due to significant motion and blurring artifact. This may affect diagnostic the interpretation of the study findings. -Absence of coronary calcification with an Agatston score = 0 using the AJ-130 method. -No evidence of significant flow-limiting atherosclerosis of the coronary arteries. -CAD-RADS 0. Management recommendations per ACC/AHA guidelines*, as clinically appropriate. *Recommendations: CAD RADS 0: Reassurance. Consider non-atherosclerotic causes of chest pain. CAD RADS 1: Consider non-atherosclerotic causes of chest pain. Consider preventive therapy and risk factor modification. CAD RADS 2: Consider non-atherosclerotic causes of chest pain. Consider preventive therapy and risk factor modification, particularly for patients with nonobstructive plaque in multiple segments. CAD RADS 3: Consider further functional testing. Consider symptom-guided anti-ischemic and preventive pharmacotherapy as well as risk factor modification per published guideline statements. CAD RADS 4A: Consider further functional testing or invasive coronary angiography with revascularization per published guideline statements. Consider symptom-guided anti-ischemic and preventive pharmacotherapy as well as risk factor modification per published guideline statements. CAD RADS 4B: Invasive coronary angiography recommended with revascularization per published guideline statements. Consider symptom-guided anti-ischemic and preventive pharmacotherapy as well as risk factor modification per published guideline statements. CAD RADS 5: Consider invasive angiography and/or viability assessment with revascularization per published guideline statements. Consider symptom-guided anti-ischemic and preventive pharmacotherapy as well as risk factor modification per published guideline statements. CRITICAL RESULT None COMMUNICATION Per this written report The coronary and cardiac findings of this CCTA were reviewed, reported, and signed by David Diaz MD (Form Designer) Conclusion Electronically signed by : Fatou Diaz MD 06/19/2025 02:47:23
[2025-06-16 10:30] VITALS: BP 118/82; PULSE 60; RESP 18; TEMP 36.1; O2SAT 100
[2025-06-16 10:32] VITALS: BP 121/83; PULSE 58; RESP 18; TEMP 36.1; O2SAT 100
[2025-06-16 10:38] VITALS: BP 100/61; PULSE 68; RESP 18; TEMP 36.1; O2SAT 98
[2025-06-16] MEDS: IOPAMIDOL-370 (76%);100ML BOTTLE 85 ML IV (10:40)
[2025-06-16] MEDS: 0.9 % SODIUM CHLORIDE 50 ML VIAL IV (10:40)
[2025-06-16 10:50] VITALS: BP 108/68; PULSE 59; RESP 17; TEMP 36.2; O2SAT 100
== END 2025-06-16 10:50 | disposition home or self-care (01) ==
LOC: RT 07:48 → RAD 09:31
PROVIDERS: PCP Internal Medicine; Visit Provider Internal Medicine
DX: I08.0 Rheumatic disorders of both mitral and aortic valves (principal); R93.1 Abnormal findings on diagnostic imaging of heart and coronary circulation; I48.91 Unspecified atrial fibrillation; K52.9 Noninfective gastroenteritis and colitis, unspecified; R94.31 Abnormal electrocardiogram [ECG] [EKG]; E78.5 Hyperlipidemia, unspecified
CPT/HCPCS: 36415; 75574; 80048; 80061; 80076; 82565; 83735; 84439; 84443; 84520; 85025; 93306; Q9967